=== PATIENT | female | born 1955 | race Caucasian/White ===

== ENCOUNTER 2019-07-29 11:15 | Outpatient (CLI) | payer MEDICAID ==
[2019-07-29 18:57] LABS: BASOPHILS % (AUTO) 0.7 %; EOSINOPHILS # (AUTO) 0.1 10^3/uL (0.0-0.7); EOSINOPHILS % (AUTO) 1.3 %; HGB - HEMOGLOBIN 13.6 g/dL (12.0-16.0); LYMPHOCYTES # (AUTO) 2.2 10^3/uL (1.5-3.5); LYMPHOCYTES % (AUTO) 41.9 %; MEAN CORPUSCULAR HGB CONC 32.1 g/dL (32.0-36.0); MEAN CORPUSCULAR VOLUME 90.4 fL (81.0-99.0); MEAN PLATELET VOLUME 9.9 fL (7.9-10.8); MONOCYTES # (AUTO) 0.5 10^3/uL (0.0-1.0); MONOCYTES % (AUTO) 8.8 %; NEUTROPHILS # (AUTO) 2.5 10^3/uL (1.5-6.6); NEUTROPHILS % (AUTO) 47.1 %; PLT - PLATELET COUNT 352 10^3/uL (130-450); RED BLOOD COUNT 4.69 10^6/uL (4.20-5.40); WHITE BLOOD COUNT 5.3 x10^3/uL (4.8-10.8)
[2019-07-29 19:18] LABS: ALBUMIN 4.5 g/dL (3.2-5.5); ALBUMIN/GLOBULIN RATIO 1.5 (1.0-2.2); ALKALINE PHOSPHATASE 52 IU/L (42-121); ALT ALANINE AMINOTRANSFERASE 31 IU/L (10-60); AST ASPARTATE AMINOTRANSFERASE 27 IU/L (10-42); BILIRUBIN,TOTAL 0.4 mg/dL (0.2-1.0); BUN - BLOOD UREA NITROGEN 11 mg/dL (6-20); CALCIUM 9.4 mg/dL (8.5-10.3); CARBON DIOXIDE - CO2 27 mmol/L (21-32); CHLORIDE 101 mmol/L (101-111); CHOL/HDL RATIO 5.3 (<4.4); CHOLESTEROL 294 mg/dL; CREATININE 0.6 mg/dL (0.4-1.0); GFR - MDRD 101 (>89); GLUCOSE 92 mg/dL (70-100); HDL CHOLESTEROL 56 mg/dL; LDL CHOLESTEROL,CALCULATED 180 mg/dL; LDL/HDL RATIO 3.2 (<4.4); SODIUM 140 mmol/L (135-145); TOTAL PROTEIN 7.5 g/dL (6.7-8.2); VLDL CHOLESTEROL 58 mg/dL
== END 2019-07-29 23:59 | disposition home or self-care (01) ==
LOC: LAB.WCP 11:15
PROVIDERS: ATTEND Physician Assistant
DX: Z00.00 Encounter for general adult medical examination without abnormal findings (principal)
CPT/HCPCS: 36415; 80053; 80061; 83721; 84443; 85025

== ENCOUNTER 2020-02-02 08:14 | Outpatient (CLI) | payer MEDICAID ==
[2020-02-02 12:05] LABS: CHOL/HDL RATIO 4.6 (<4.4); CHOLESTEROL 266 mg/dL; HDL CHOLESTEROL 58 mg/dL; LDL CHOLESTEROL,CALCULATED 152 mg/dL; LDL/HDL RATIO 2.6 (<4.4); VLDL CHOLESTEROL 56 mg/dL
== END 2020-02-02 08:15 | disposition home or self-care (01) ==
LOC: LAB.WCP 08:14
PROVIDERS: ATTEND Physician Assistant
DX: E78.5 Hyperlipidemia, unspecified (principal)
CPT/HCPCS: 36415; 80061; 83721

== ENCOUNTER 2020-11-04 08:00 | Outpatient (CLI) | payer MEDICAID ==
[2020-11-04 12:08] LABS: BASOPHILS # (AUTO) 0.1 10^3/uL (0.0-0.1); BASOPHILS % (AUTO) 0.8 %; EOSINOPHILS # (AUTO) 0.1 10^3/uL (0.0-0.7); EOSINOPHILS % (AUTO) 1.7 %; HCT - HEMATOCRIT 40.7 % (37.0-47.0); HGB - HEMOGLOBIN 13.6 g/dL (12.0-16.0); LYMPHOCYTES # (AUTO) 2.1 10^3/uL (1.5-3.5); LYMPHOCYTES % (AUTO) 35.9 %; MEAN CORPUSCULAR HEMOGLOBIN 30.3 pg (27.0-31.0); MEAN CORPUSCULAR HGB CONC 33.4 g/dL (32.0-36.0); MEAN CORPUSCULAR VOLUME 90.6 fL (81.0-99.0); MEAN PLATELET VOLUME 10.7 fL (7.9-10.8); MONOCYTES # (AUTO) 0.6 10^3/uL (0.0-1.0); MONOCYTES % (AUTO) 9.6 %; NEUTROPHILS # (AUTO) 3.1 10^3/uL (1.5-6.6); NEUTROPHILS % (AUTO) 51.8 %; PLT - PLATELET COUNT 325 10^3/uL (130-450); RED BLOOD COUNT 4.49 10^6/uL (4.20-5.40); WHITE BLOOD COUNT 5.9 x10^3/uL (4.8-10.8)
[2020-11-04 12:23] LABS: ALBUMIN 4.2 g/dL (3.2-5.5); ALBUMIN/GLOBULIN RATIO 1.5 (1.0-2.2); ALKALINE PHOSPHATASE 64 IU/L (42-121); ALT ALANINE AMINOTRANSFERASE 34 IU/L (10-60); AST ASPARTATE AMINOTRANSFERASE 32 IU/L (10-42); BILIRUBIN,TOTAL 0.5 mg/dL (0.2-1.0); BUN - BLOOD UREA NITROGEN 15 mg/dL (6-20); CALCIUM 9.1 mg/dL (8.5-10.3); CARBON DIOXIDE - CO2 26 mmol/L (21-32); CHLORIDE 101 mmol/L (101-111); CHOL/HDL RATIO 4.6 (<4.4); CHOLESTEROL 223 mg/dL; CREATININE 0.6 mg/dL (0.4-1.0); GFR - MDRD 101 (>89); GLUCOSE 99 mg/dL (70-100); HDL CHOLESTEROL 48 mg/dL; LDL CHOLESTEROL,CALCULATED 138 mg/dL; LDL/HDL RATIO 2.9 (<4.4); POTASSIUM 3.9 mmol/L (3.5-5.0); SODIUM 136 mmol/L (135-145); TRIGLYCERIDES 184 mg/dL; VLDL CHOLESTEROL 37 mg/dL
[2020-11-04 12:35] LABS: THYROID STIMULATING HORMONE 4.59 uIU/mL (0.34-5.60)
== END 2020-11-04 23:59 ==
LOC: LAB.WCP 08:00
PROVIDERS: ATTEND Nurse Practitioner Family
DX: Z00.00 Encounter for general adult medical examination without abnormal findings (principal)
CPT/HCPCS: 36415; 80053; 80061; 83721; 84443; 85025

== ENCOUNTER 2021-07-13 10:55 | Outpatient (CLI) | payer MEDICARE, MEDICAID ==
--- NOTE | 2021-07-13 13:18 | XRAY Report ---
PROCEDURE: Lumbar Spine 2 View INDICATIONS: LOW BACK PAIN TECHNIQUE: 3 views of the lumbar spine were acquired. COMPARISON: None. FINDINGS: Bones: 5 [id number] vertebrae are present. Mild grade 1 anterolisthesis of L3 on L4. No vertebr al body compression fractures. No suspicious bony lesions. Multilevel disc space narrowing and endp late osteophyte formation. Facet hypertrophy throughout the mid and lower lumbar spine. Soft tissues: Overlying bowel gas pattern is normal. No suspicious soft tissue calcifications. IMPRESSION: 1. Multilevel degenerative disc and facet disease. 2. No acute fracture. No osseous lesion. If symptoms and/or clinical suspicion for pathology continue , further assessment with repeat plain films, or advanced imaging (e.g., CT, MRI, or bone scan) is re commended for further assessment. Reviewed by: Alondra Munoz MD on 07/13/2021 1:17 PM PST Approved by: Alondra Munoz MD on 07/13/2021 1:17 PM PST Station ID: [id number]
== END 2021-07-13 23:59 | disposition home or self-care (01) ==
LOC: DI.N 10:55
PROVIDERS: ATTEND Family Medicine
DX: M43.16 Spondylolisthesis, lumbar region (principal); M47.816 Spondylosis without myelopathy or radiculopathy, lumbar region; M51.36 Other intervertebral disc degeneration, lumbar region

== ENCOUNTER 2021-07-17 13:17 | Outpatient (CLI) | payer MEDICARE, MEDICAID ==
--- NOTE | 2021-07-17 17:04 | MRI Report ---
PROCEDURE: Lumbar Spine W/O INDICATIONS: LUMBAR SPONDYLOLISTHESIS TECHNIQUE: Noncontrast sagittal T1 spin echo and T2 fast echo, sagittal STIR, axial T1 and T2 fast spin echo thr ough the lumbar spine. In cases with scoliosis, additional coronal T2 fast spin echo may be performe d. COMPARISON: None. FINDINGS: Image quality: Excellent. Alignment and Curvature: There is mild L3-L4 anterolisthesis secondary to facet hypertrophy. Bone Marrow: Mild Modic type II reactive endplate changes noted adjacent to the L2-L3, L3-L4, L4-L5 a nd L5-S1 discs. No acute vertebral body compression fractures. Spinal Cord: Conus medullaris terminates at the L1 level. Visualized cord demonstrates normal signa l and size. Paraspinous Soft Tissues: No paravertebral masses. T12-L1: Normal in appearance. L1-L2: Loss of disc signal and height. Moderate, diffuse disc bulge. Mild bilateral facet hypertro phy. Moderate narrowing of the central canal. Moderate bilateral neural foraminal narrowing. No neura l compression. L2-L3: Loss of disc signal and height. Moderate, diffuse disc bulge. Large central/left central di sc protrusion. Mild bilateral facet hypertrophy. Severe narrowing of the central canal with compressi on of the traversing nerve roots of the cauda equina. Mild right and moderate left neural foraminal n arrowing. L3-L4: Loss of disc signal and height. Moderate, diffuse disc bulge. Severe bilateral facet hypertr ophy. Severe narrowing of the central canal with compression of the nerve roots of the cauda equina. Moderate bilateral neural foraminal narrowing. L4-L5: Loss of disc signal and height. Mild, diffuse disc bulge. Moderate bilateral facet hypertrop hy. Mild narrowing of the central canal. Moderate right and severe left neural foraminal narrowing wi th compression of exiting left L4 nerve root. L5-S1: Loss of disc signal. Mild, diffuse disc bulge. Acoo-qd-texmdvht bilateral facet of artery. N o central stenosis. Mild right and moderate left neural foraminal narrowing. No neural compression. IMPRESSION: 1. Grade 1 L4-L5 degenerative spondylolisthesis. 2. Multilevel degenerative disc disease. 3. Multilevel facet arthropathy. 4. Severe L2-L3 and L3-L4 central canal narrowing with compression of the traversing nerve roots of t he cauda equina. 5. Severe left L4-L5 neural foraminal narrowing with compression of the exiting left L4 nerve root. Reviewed by: Lauryn Becker MD, PhD on 07/17/2021 5:02 PM PST Approved by: Lauryn Becker MD, PhD on 07/17/2021 5:02 PM PST Station ID: [id number]
== END 2021-07-17 13:18 | disposition home or self-care (01) ==
LOC: DI 13:17
PROVIDERS: ATTEND Family Medicine
DX: M43.16 Spondylolisthesis, lumbar region (principal); M51.36 Other intervertebral disc degeneration, lumbar region; M51.16 Intervertebral disc disorders with radiculopathy, lumbar region; M48.061 Spinal stenosis, lumbar region without neurogenic claudication; M47.26 Other spondylosis with radiculopathy, lumbar region

== ENCOUNTER 2022-01-10 11:41 | Outpatient (CLI) | payer MEDICARE, MEDICAID ==
[2022-01-10 18:15] LABS: CHOL/HDL RATIO 4.3 (<4.4); CHOLESTEROL 227 mg/dL; HDL CHOLESTEROL 53 mg/dL; LDL CHOLESTEROL,CALCULATED 131 mg/dL; LDL/HDL RATIO 2.5 (<4.4); TRIGLYCERIDES 216 mg/dL; VLDL CHOLESTEROL 43 mg/dL
== END 2022-01-10 11:42 | disposition home or self-care (01) ==
LOC: LAB.N 11:41
PROVIDERS: ATTEND Physician Assistant
DX: E78.5 Hyperlipidemia, unspecified (principal)
CPT/HCPCS: 36415; 80061; 83721

== ENCOUNTER 2022-02-01 11:22 | Outpatient (CLI) | payer MEDICARE ==
--- NOTE | 2022-02-14 10:30 | Mammography Report ---
BILATERAL DIGITAL SCREENING MAMMOGRAM 3D/2D: 02/01/2022 CLINICAL: Routine screening. No prior exams were available for comparison. There are scattered areas of fibroglandular density in both breasts (category b / 25%-50% glandular t issue). No significant masses, calcifications, or other findings are seen in either breast. IMPRESSION: NEGATIVE There is no mammographic evidence of malignancy. A 1 year screening mammogram is recommended. Based on the Tyrer Cuzick model (a risk assessment model) the patients lifetime risk is 6.3% and her 10 year risk is 3.2%. According to the ACR, ACS, and NCCN guidelines, an annual breast MRI exam tiago g with mammogram is recommended if the patients lifetime risk is 20% or greater. This exam was interpreted at Station ID: [id number]. NOTE: For mammograms, a report in lay terms will be sent to the patient. Approximately 15% of breast malignancies will not be visualized mammographically. In the management of a palpable breast mass, a negative mammogram must not discourage biopsy of a clinically suspicious lesion. Electronically Signed By: Al mancilla/mia:02/13/2022 14:18:00 ACR BI-RADS Category 1: Negative 3341F PARENCHYMAL PATTERN: (A) - The breast(s) demonstrate(s) scattered fibroglandular densities. BI-RADS CATEGORY: (1) - 1 RECOMMENDATION: (ANNUAL) - Recommend routine annual screening mammography. [id number] 1 year screening LATERALITY: (B)
== END 2022-02-01 11:23 | disposition home or self-care (01) ==
LOC: DI.N 11:22
PROVIDERS: ATTEND Physician Assistant
DX: Z12.31 Encounter for screening mammogram for malignant neoplasm of breast (principal)

== ENCOUNTER 2022-07-17 08:56 | Outpatient (CLI) | payer MEDICARE ==
[2022-07-17] MEDS ORDERED: LIDOCAINE-MPF 1% 5 ML VIAL ONE (09:02)
[2022-07-17] MEDS ORDERED: TRIAMCINOLONE 40 MG/ML VIAL ONE (09:02)
[2022-07-17] MEDS ORDERED: BUPIVACAINE 0.5% PF 10 ML VIAL ONE (09:02)
[2022-07-17] MEDS ORDERED: TRIAMCINOLONE 40 MG/ML VIAL IM ONE (10:08)
[2022-07-17] MEDS ORDERED: BUPIVACAINE 0.5% PF 10 ML VIAL IM ONE (10:08)
[2022-07-17] MEDS ORDERED: LIDOCAINE-MPF 1% 5 ML VIAL SUBQ ONE (10:09)
--- NOTE | 2022-07-17 10:52 | XRAY Report ---
PROCEDURE: Inj/Aspiration Major Joint INDICATIONS: RIGHT HIP PAIN CONTRAST: 5 mL FLUORO TIME: 1.6 MIN TECHNIQUE: The indications, alternatives, benefits, risks, and complications of the procedure were explained to the patient. Written informed consent was obtained and placed in the chart. The patient was placed in an appropriate position on the fluoroscopy table, and a site was chosen for percutaneous access un laureen fluoroscopic guidance. Local anesthetic was administered using a 1% lidocaine solution. A hypod ermic or spinal needle was then used to access the symptomatic joint. Intra-articular location of th e needle tip was confirmed by injecting a small amount of contrast, followed by steroid administratio n. The needle was then withdrawn, and a bandage applied to the puncture site. FINDINGS: Joint injected: Right Medications injected: 1 mL of 40 mg/mL Kenalog and 0.5% Ropivacaine mixture. Complications: None. IMPRESSION: 1. Successful fluoroscopically guided administration of steroid and anaesthetic solution into the rig ht joint. 2. There is noted to be complete destruction of the right femoral head which is a significant change compared to prior x-ray on 05/23/2022. These findings were discussed with the [facility] office Reviewed by: Gilmar Cordero on 07/17/2022 10:50 AM PST Approved by: Gilmar Cordero on 07/17/2022 10:50 AM PST Station ID: [id number]
== END 2022-07-17 08:57 | disposition home or self-care (01) ==
LOC: DI 08:56
PROVIDERS: ATTEND Physician Assistant Surgical
DX: M25.551 Pain in right hip (principal); M89.9 Disorder of bone, unspecified
CPT/HCPCS: 20610; 77002; Q9965

== ENCOUNTER 2022-07-24 16:07 | Outpatient (CLI) | payer MEDICARE ==
--- NOTE | 2022-07-25 10:20 | XRAY Report ---
PROCEDURE: Hip 2 View RT INDICATIONS: RIGHT HIP PAIN TECHNIQUE: Frontal view of the pelvis, 2 views of the right hip COMPARISON: Pelvis and right hip radiographs 05/23/2022 FINDINGS: Bones: Severe degenerative changes of the right hip redemonstrated. Since the prior exam, pronounced increase in femoral head deformity/articular surface collapse. Soft tissues: No suspicious soft tissue calcifications or masses. IMPRESSION: Severe right hip degenerative changes with significant interval increase in right femoral head deform ity since the prior exam. Findings could represent pronounced worsening of degenerative changes or ar ticular surface collapse related to avascular necrosis, other etiologies not excluded. Reviewed by: Rishi Cho MD on 07/25/2022 10:19 AM PST Approved by: Rishi Cho MD on 07/25/2022 10:19 AM PST Station ID: [id number]
== END 2022-07-24 16:11 | disposition home or self-care (01) ==
LOC: DI.WOS 16:07
PROVIDERS: ATTEND Physician Assistant Surgical
DX: M70.61 Trochanteric bursitis, right hip (principal); M16.11 Unilateral primary osteoarthritis, right hip

== ENCOUNTER 2022-07-31 13:47 | Outpatient (CLI) | payer MEDICARE ==
--- NOTE | 2022-07-31 16:35 | MRI Report ---
PROCEDURE: HIP WO - RT INDICATIONS: OSTEONECROSIS RIGHT FEMUR TECHNIQUE: Noncontrast coronal T1 spin echo and STIR through the bony pelvis. Coronal and axial T2 fast spin ec ho with fat saturation, sagittal T1 spin echo, and oblique axial T2 fast spin echo with fat saturatio n through the hip. COMPARISON: Right hip radiographs 07/24/2022 FINDINGS: Image quality: Excellent. Bones and joints: There is flattening of the superior femoral head with osseous destruction and frag mentation as seen on radiographs from 07/24/2022. These osseous fragments are seen within the joint sp michelle. Prominent osseous edema is seen in the femoral neck extending to the proximal femoral shaft. The re is mild edema and osseous remodeling within the right acetabulum. A large right hip effusion is pr esent, which demonstrates intermediate signal intensity on fluid sensitive sequences and may contain blood products or debris. Left proximal femur demonstrates normal signal intensity. Moderate left hip osteoarthrosis. No acute pelvic fracture. Degenerative disc disease and facet hypertrophy are seen in the lower lumbar spine. No suspicious marrow replacing mass. Tendons: Mild right distal gluteus medius and minimus tendinosis with asymmetric grade 2-3 fatty inf iltration of the right gluteus musculature. The iliopsoas tendon appears intact, without adjacent bur shaye fluid collections. The origin of the hamstring tendon is intact at the ischial tuberosity. The tendons for the direct and indirect heads of the rectus femoris muscle appear intact. Labrum and cartilage: The acetabular labrum appears intact. Cartilage surface of the femoral head a ppears of normal thickness. There is normal morphology of the femoral head and acetabulum. Soft tissues: Mild soft tissue edema surrounding the right hip. There is mild edema within the right hip adductors that may be related to a low-grade strains. Diverticula are noted in the colon. IMPRESSION: Flattening of the superior right femoral head articular surface with fragmentation resulting in loose osseous structures within the joint. Prominent surrounding osseous edema is seen within the proximal femur and to a lesser extent the right acetabulum. A large right hip effusion is present, which may contain proteinaceous or hemorrhagic contents. Findings may be related to osteonecrosis, subchondral fracture, or neuropathic arthropathy with rapid progression of degenerative changes, although septic arthritis is not excluded. Recommend clinical correlation, and urgent joint aspiration if there is cl inical suspicion for septic arthritis. Reviewed by: Rishi Celis MD on 07/31/2022 4:34 PM PST Approved by: Rishi Celis MD on 07/31/2022 4:34 PM PST Station ID: [id number]
== END 2022-07-31 13:48 | disposition home or self-care (01) ==
LOC: DI 13:47
PROVIDERS: ATTEND Physician Assistant Surgical
DX: M87.851 Other osteonecrosis, right femur (principal); M25.451 Effusion, right hip; R93.6 Abnormal findings on diagnostic imaging of limbs
CPT/HCPCS: 36415; 85025; 85651; 86140

== ENCOUNTER 2022-07-31 14:47 | Outpatient (CLI) | payer MEDICARE ==
[2022-07-31 14:58] LABS: BASOPHILS # (AUTO) 0.1 10^3/uL (0.0-0.1); BASOPHILS % (AUTO) 0.9 %; EOSINOPHILS # (AUTO) 0.1 10^3/uL (0.0-0.7); EOSINOPHILS % (AUTO) 1.1 %; HCT - HEMATOCRIT 43.7 % (37.0-47.0); HGB - HEMOGLOBIN 14.7 g/dL (12.0-16.0); LYMPHOCYTES % (AUTO) 36.4 %; MEAN CORPUSCULAR HEMOGLOBIN 30.2 pg (27.0-31.0); MEAN CORPUSCULAR HGB CONC 33.6 g/dL (32.0-36.0); MEAN CORPUSCULAR VOLUME 89.9 fL (81.0-99.0); MEAN PLATELET VOLUME 9.2 fL (7.9-10.8); MONOCYTES # (AUTO) 0.6 10^3/uL (0.0-1.0); MONOCYTES % (AUTO) 7.8 %; NEUTROPHILS # (AUTO) 4.4 10^3/uL (1.5-6.6); NEUTROPHILS % (AUTO) 53.6 %; PLT - PLATELET COUNT 393 10^3/uL (130-450); RED BLOOD COUNT 4.86 10^6/uL (4.20-5.40); RED CELL DISTRIBUTION WIDTH 12.9 % (12.0-15.0); WHITE BLOOD COUNT 8.2 x10^3/uL (4.8-10.8)
== END 2022-07-31 14:48 | disposition home or self-care (01) ==
LOC: LAB 14:47
PROVIDERS: ATTEND Physician Assistant Surgical
DX: M87.851 Other osteonecrosis, right femur (principal)
CPT/HCPCS: 36415; 85025; 85651; 86140

== ENCOUNTER 2022-08-21 15:12 | Outpatient (CLI) | payer MEDICARE ==
--- NOTE | 2022-08-21 16:20 | Ultrasound Report ---
PROCEDURE: Duplex Ext Veins Right INDICATIONS: OSTEONECROSIS RIGHT FEMUR TECHNIQUE: Real-time imaging, as well as color and pulse Doppler interrogation, were performed of the lower extr emity deep veins from the inguinal ligament to the popliteal fossa. COMPARISON: None. FINDINGS: The deep veins are normally compressible, and free of intraluminal thrombus. Color and pu lse Doppler demonstrate normal phasic intraluminal flow. There is normal augmentation response to di stal compression maneuver. IMPRESSION: No DVT in the right lower extremity. Reviewed by: Gilmar Cordero on 08/21/2022 4:18 PM PDT Approved by: Gilmar Cordero on 08/21/2022 4:18 PM PDT Station ID: [id number]
== END 2022-08-21 15:13 | disposition home or self-care (01) ==
LOC: DI 15:12
PROVIDERS: ATTEND Physician Assistant Surgical
DX: M87.851 Other osteonecrosis, right femur (principal)

== ENCOUNTER 2022-09-04 07:59 | Outpatient (CLI) | payer MEDICARE ==
[~2022-09-04 07:59] MED LIST: ATROPINE ABBOJECT 1 MG/10 ML SYRINGE IVP ONE; DOBUTamine 500 MG/250 ML 500 MG/250 ML BAG IV ONE; METOPROLOL 5 MG/5 ML VIAL IVP ONE; NITROGLYCERIN SL 0.4 MG TABLET SL ONE
--- NOTE | 2022-09-04 08:07 | CARDIAC PROCEDURE NOTE ---
Stress Test Report Service Date: 09/04/22 Service Time: 08:00 Ordering Provider: Zoila Dunham PA-C Indication for Test: Pre-operative risk stratification prior to elective total hip replacement surgery. Significant Medical History: Ely's medical history has been most notable for orthopedic issues requiring back surgery on 2 occasions, most recently 9 months ago, which she reports was uncomplicated. 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 During that time she became increasingly fatigued and reports having intermittent chest tightness, related to emotional rather than physical stress. Her mother in late 2018 and she relocated to [facility]. Initially she was able to make some progress with her cardiovascular symptoms and had increased her walking up to almost 3 miles daily, but her back symptoms worsened and she underwent the described back surgery procedure last summer. Following surgery she remained globally weak and unable to regain her prior level of exertional tolerance. Her right hip pain has been increasingly progressive and has limited her to almost no activity in recent times. Notably, she has not experienced recurrent chest tightness over the past 3 years. Her risk profile is rather benign, with a long history of avoiding red meat and only borderline elevation of cholesterol levels (as indicated below). Cardiac Risk Factors: She reports recent LDL cholesterol level of 131 mg/dL (not treated); mother had history of CHF (etiology unknown); no history of hypertension, diabetes, cigarette smoking ever or prior vascular disease. Type of Stress Test: Dobutamine Stress Echocardiography Pharmacologic Agent: Dobutamine Procedure: -Pharmacologic Stress Test- After signing informed consent, the patient underwent a pharmacologic stress test using graded infusion of dobutamine, commencing at 5 mcg/kg/min, increasing every 3 minutes to 10, 20, 30, 40 and 50 mcg/kg/min. The test was terminated due to achieving target heart rate. Resting heart rate: 83 Peak heart rate: 138 Normal HR response. Resting BP: 146/80 Peak BP: 124/72 Borderline elevated resting BP with physiologic response to dobutamine. Rhythm during testing: Sinus rhythm throughout. Symptoms: Patient reported mild tingling, heart pounding and chest tightness at peak dobutamine infusion. EKG at rest showed Normal sinus rhythm, normal in all aspects. EKG at peak stress showed no ischemia by EKG criteria. In Recovery HR gradually decreased towards resting baseline with BP increasing to final value of 136/76. Echo imaging was performed at rest and with stress, per protocol. Image interpretation will be reported separately. Amando Adams MD, was present throughout this pharmacologic stress study and supervised it in its entirety. Summary: 1) Normal resting EKG. 2) Adequate stress was achieved. 3) Normal BP response to pharmacologic agent. 4) No ischemic changes by EKG criteria were seen at peak stress. 5) Echo image interpretation reveals normal resting left ventricular size, wall thickness and systolic function, with appropriate hyperdynamic augmentation of all segments at peak pharmacologic stress, and return to baseline contractile pattern in late recovery; findings indicate no evidence of prior infarct or inducible ischemia. See separate echo image interpretation report CONCLUSIONS: 1) No evidence by EKG or echo imaging of inducible ischemia with an adequate level of dobutamine induced pharmacologic stress. 2) Patient should be at cardiovascular risk that is average for age at upcoming planned hip replacement surgery.
[2022-09-04] MEDS ORDERED: SODIUM CHLORIDE 0.9% 250 ML IV ONE (08:52)
[2022-09-04] MEDS ORDERED: DOBUTamine 500 MG/250 ML 500 MG/250 ML BAG IV SCH (13:00)
== END 2022-09-04 08:00 | disposition home or self-care (01) ==
LOC: DI 07:59
PROVIDERS: ATTEND Physician Assistant
DX: Z01.810 Encounter for preprocedural cardiovascular examination (principal); R06.09 Other forms of dyspnea
CPT/HCPCS: 93016; 93017; 93018; 93350; J1250

== ENCOUNTER 2022-10-02 08:44 | Outpatient (CLI) | payer MEDICARE ==
--- NOTE | 2022-10-02 14:00 | Ultrasound Report ---
PROCEDURE: Duplex Lwr Ext Arterial Bilat INDICATIONS: PAD TECHNIQUE: Color and pulse Doppler interrogation was performed of both lower extremity arterial systems, with im age documentation. COMPARISON: None FINDINGS: Right lower extremity: Common femoral artery: 92.5 cm/sec, with triphasic flow. Deep femoral artery: 89.1 cm/sec, with triphasic flow. Proximal superficial femoral artery: 96.0 cm/sec, with triphasic flow. Mid superficial femoral artery: 65.1 cm/sec, with biphasic flow. Distal superficial femoral artery: 60.6 cm/sec, with biphasic flow. Popliteal artery: 47.3 cm/sec, with biphasic flow. Posterior tibial artery: 51.0 cm/sec, with biphasic flow. Anterior tibial artery/dorsalis pedis: 51.0 cm/sec, with biphasic flow. Alcaraz-scale imaging description: No focal hemodynamically significant stenosis. Left lower extremity: Common femoral artery: 122.2 cm/sec, with triphasic flow. Deep femoral artery: 132.5 cm/sec, with triphasic flow. Proximal superficial femoral artery: 103.4 cm/sec, with right phasic flow. Mid superficial femoral artery: 103.4 cm/sec, with triphasic flow. Distal superficial femoral artery: 98.8 cm/sec, with phasic flow. Popliteal artery: Not imaged. Posterior tibial artery: 68.1 cm/sec, with biphasic flow. Anterior tibial artery/dorsalis pedis: 68.8 cm/sec, with biphasic flow. Alcaraz-scale imaging description: No focal hemodynamically significant stenosis. IMPRESSION: 1. No focal hemodynamically significant stenosis of the bilateral lower extremity arteries. Of note, the left popliteal artery was not interrogated due to patient discomfort. Reviewed by: Diamond Lou MD on 10/02/2022 1:58 PM PDT Approved by: Diamond Lou MD on 10/02/2022 1:58 PM PDT Station ID: [id number]
== END 2022-10-02 08:45 | disposition home or self-care (01) ==
LOC: DI 08:44
PROVIDERS: ATTEND Orthopaedic Surgery
DX: I73.9 Peripheral vascular disease, unspecified (principal)
CPT/HCPCS: 93925

== ENCOUNTER 2022-10-24 07:14 | Inpatient (IN) | payer MEDICARE ==
[~2022-10-24 07:14] MED LIST changes: +ACETAMINOPHEN 500 MG TABLET PO ONE; -ATROPINE ABBOJECT 1 MG/10 ML SYRINGE IVP ONE; +CELECOXIB 100 MG CAPSULE PO ONE; +DEXAMETHASONE 10 MG/ML VIAL ONE; -DOBUTamine 500 MG/250 ML 500 MG/250 ML BAG IV ONE; -METOPROLOL 5 MG/5 ML VIAL IVP ONE; -NITROGLYCERIN SL 0.4 MG TABLET SL ONE; +ceFAZolin 2 GM VIAL ONE
[2022-10-24] MEDS ORDERED: LACTATED RINGERS 1,000 ML IV ONE ×2 (07:17→12:16)
[2022-10-24] MEDS ORDERED: BUPIVACAINE 0.5% PF 10 ML VIAL ONE (07:37)
[2022-10-24] MEDS ORDERED: ONDANSETRON 4 MG/2 ML VIAL ONE (07:41)
[2022-10-24] MEDS ORDERED: MIDAZOLAM 2 MG/2 ML VIAL ONE (07:42)
[2022-10-24] MEDS ORDERED: KETAMINE 200 MG/20 ML VIAL ONE (07:42)
[2022-10-24] MEDS ORDERED: PROPOFOL 500 MG/50 ML 500 MG/50 ML VIAL ONE (07:43)
--- NOTE | 2022-10-24 08:14 | ANESTHESIA ---
Pre-Anesthesia VS, & Labs - Diagnosis R hip osteoarthritis - Procedure R hip arthroplasty Vital Signs: Temp Pulse Resp BP Pulse Ox O2 Flow Rate 36.0 C L 76 16 152/95 H 98 0 10/24/22 07:32 10/24/22 07:32 10/24/22 07:32 10/24/22 07:32 10/24/22 07:32 10/24/22 07:32 Height: 5 ft 4 in Weight (kg): 87.5 kg Body Mass Index: 33.0 BMI Classification: Obese - NPO >8 hours - Is Patient ?: No - Lab Results Current Lab Results: Laboratory Tests 10/24/22 08:09: POC Whole Bld Glucose 94 Home Medications and Allergies Home Medications: Ambulatory Orders Acetaminophen [Tylenol] 650 mg PO Q6H PRN 10/16/22 Cannabidiol (Cbd) [Epidiolex] 50 mg PO BID 10/16/22 DULoxetine [Cymbalta] 60 mg PO DAILY 10/16/22 Melatonin/Pyridoxine [Melatonin 5 mg Tablet] 1 each PO QPM PRN 10/16/22 Meloxicam [Mobic] 15 mg PO DAILY 10/16/22 Zolpidem [Ambien] 5 mg PO HS PRN 10/16/22 metroNIDAZOLE 0.75% GEL [Flagyl Gel] 1 applic TOP BID 10/16/22 tiZANidine [Zanaflex] 4 mg PO Q8H PRN 10/16/22 traMADol [Ultram] 50 mg PO QPM PRN 10/16/22 Acetaminophen [Tylenol] 650 mg PO Q6H PRN 10/16/22 Cannabidiol (Cbd) [Epidiolex] 50 mg PO BID 10/16/22 DULoxetine [Cymbalta] 60 mg PO DAILY 10/16/22 Melatonin/Pyridoxine [Melatonin 5 mg Tablet] 1 each PO QPM PRN 10/16/22 Meloxicam [Mobic] 15 mg PO DAILY 10/16/22 Zolpidem [Ambien] 5 mg PO HS PRN 10/16/22 metroNIDAZOLE 0.75% GEL [Flagyl Gel] 1 applic TOP BID 10/16/22 tiZANidine [Zanaflex] 4 mg PO Q8H PRN 10/16/22 traMADol [Ultram] 50 mg PO QPM PRN 10/16/22 Allergies/Adverse Reactions: Allergies Allergy/AdvReac Type Severity Reaction Status Date / Time No Known Drug Allergies Allergy Verified 09/04/22 12:10 Anes History & Medical History - Anesthetic History Anesthesia Complications: reports: No previous complications Family history of Anesthesia Complications: Denies Family history of Malignant Hyperthermia: Denies (chronic pain) - Medical History Cardiovascular: reports: Murmur Pulmonary: reports: None Gastrointestinal: reports: None Urinary: reports: None Musculoskeletal: reports: Osteoarthritis Endocrine/Autoimmune: reports: None Skin: reports: Rosacea - Surgical History Eyes Ears Nose Throat (EENT): reports: Tonsil/Adenoidectomy Gynecologic: reports: section, Hysterectomy, Other Orthopedic: reports: Carpal Tunnel surgery, Spine surgery, Other Exam General: Alert, Oriented x3 Dental: WNL Mouth Openin Fingerbreadth Neck Mobility: Normal Mallampati classification: II Thyromental Distance: 4-6 cm Respiratory: Lungs clear Cardiovascular: Regular rate Plan Anesthesia Type: General (SAB primary with GETA as backup), Spinal, Fascia Iliaca Block Regional Block: Per Surgeon's request for Post Op pain control Consent for Procedure(s) Verified and Reviewed: Yes Code Status: Attempt Resuscitation ASA classification: 3-Severe systemic disease Is this case an emergency?: No
[2022-10-24] MEDS ORDERED: ePHEDrine 50 MG/ML VIAL IVP PRN (08:15)
[2022-10-24] MEDS ORDERED: ATROPINE ABBOJECT 1 MG/10 ML SYRINGE IVP PRN (08:15)
[2022-10-24] MEDS ORDERED: NALOXONE 0.4 MG/ML VIAL IVP PRN (08:15)
[2022-10-24] MEDS ORDERED: MORPHINE 2 MG/ML CARPUJECT IVP PRN (08:15)
[2022-10-24] MEDS ORDERED: fentaNYL 100 MCG/2 ML VIAL IVP PRN (08:15)
[2022-10-24] MEDS ORDERED: ONDANSETRON 4 MG/2 ML VIAL IVP PRN ×2 (08:15→12:09)
[2022-10-24] MEDS ORDERED: fentaNYL 100 MCG/2 ML VIAL ONE ×2 (08:31→11:10)
[2022-10-24] MEDS ORDERED: TRANEXAMIC ACID 1,000 MG/10 ML VIAL ONE (08:59)
[2022-10-24] MEDS ORDERED: LACTATED RINGERS 1,000 ML IV SCH (09:00)
[2022-10-24] MEDS ORDERED: PROPOFOL 200 MG/20 ML VIAL IVP ONE (09:07)
[2022-10-24] MEDS ORDERED: ROCURONIUM 50 MG/5 ML VIAL ONE ×2 (09:07→10:18)
[2022-10-24] MEDS ORDERED: DEXAMETHASONE 4 MG/ML VIAL ONE (09:08)
[2022-10-24] MEDS ORDERED: VANCOMYCIN 1 GM VIAL ONE (09:15)
[2022-10-24] MEDS ORDERED: BUPIVACAINE 0.25% PF 30 ML VIAL ONE (09:16)
[2022-10-24] MEDS ORDERED: BUPIVACAINE 0.25% PF 30 ML VIAL SUBQ ONE (09:26)
[2022-10-24] MEDS ORDERED: ePHEDrine 50 MG/ML VIAL IVP ONE (10:15)
[2022-10-24] MEDS ORDERED: VANCOMYCIN 1 GM VIAL MC ONE (10:45)
[2022-10-24] MEDS ORDERED: ROPIVACAINE 0.2% PF 10 ML VIAL ONE (10:53)
[2022-10-24] MEDS ORDERED: SUGAMMADEX 200 MG/2 ML VIAL IVP ONE (11:44)
--- NOTE | 2022-10-24 11:49 | OPERATIVE REPORT ---
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 Procedure Performed: Right total hip arthroplasty: Payan [employer] Nephew: 54 mm R3 acetabular cup with single 6.5 mm acetabular screw, 54 mm neutral polyethylene liner, #7 high offset anthology femoral component with 36 mm +4 Oxinium femoral head Post Op Diagnosis: Same as preoperative diagnosis - Procedure Note Primary Surgeon: Angelo Lugo MD Secondary Surgeon: Sunitha Arriola PAC Anesthesia Provider: Jewell Waters CRNA Anesthesia Technique: General mask, Local Estimated Blood Loss (mL): 200 Indications: This is a 67-year-old woman with chronic right hip pain that is progressively worsened since March of last year when she took a fall. She has marked pain to the hip groin and upper thigh. She has pain every step. She needs a walking aid 100% of the time. She had a cortisone injection a little over 3 months ago which helped minimally. Her sed rate and C-reactive protein were within normal limits preoperatively. She had painful and limited motion right hip with the right leg shorter than the left. She has had 3 lumbar spine surgeries in the past. Her routine radiographs and MRI scan have been obtained preoperatively. She has almost complete destruction of femoral head with most of the femoral head absent, acetabular deficiency superiorly and laterally. The hip joint is markedly abnormal mostly femoral head and to lesser degree acetabulum with femoral shortening because of the loss of most of the femoral head. 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 This is also confirmed MRI scan of the right hip. She has seen her primary care physician, has attended joint camp and has signed informed consent in our office to proceed with right total hip arthroplastyShe has been a minimal ambulator because of the severe pain about her right hip, almost exclusively indoors at home Findings: There is nearly complete absence of femoral head. The acetabulum had very little articular cartilage. The remaining portion of the femur was articulating superiorly leaving avoid inferiorly and this was filled by fibrous tissue. There is no sign of active infection, either acute or chronic. Complications: None - Other Other Information/Narrative: After satisfactory GeneralAnesthesia had been achieved, the patient was placed in a lateral decubitus position with the right hip facing superiorly. The patient was secured in the lateral decubitus position using a pegboard with 2 post securing the torso and 2 posts securing the pelvis. The right hip and right lower extremity were prepped and draped in a sterile manner in the usual fashion. A timeout procedure was performed by the entire operating room team and all were in agreement. A longitudinal incision was made about the lateral right hip beginning at the vastus lateralis ridge of the proximal femur and extending it proximally approximately 3 fingerbreadths above the trochanter. The subcutaneous tissue and fascia morgan were split in line with the incision. The anterior one third of the gluteus medius was incised at the myotendinous junction. The gluteus medius was retracted medially. The hip capsule was exposed and was split in a T-shaped fashion. Part of the anterior hip capsule was excised. The femoral head was dislocated with flexion, adduction and external rotation. An osteotomy was done to the femoral neck using a osteotomy guide. Retractors were placed behind the femoral neck to protect the soft tissues from the oscillating saw. The proximal femur was retracted. 2 acetabular retractors were placed one anteriorly directly against bone to reduce any soft tissue impingement to femoral nerve. The second retractor was placed more posteriorly directly against bone and preventing any impingement against sciatic nerve. The acetabulum was prepared with a large curette. Medialization of the acetabulum was performed with a small acetabular reamer and then widening was done up to a 53 mm reamer the final reamers were placed in approximately 20 degrees anteversion and 45 degrees of abduction. A trial acetabular component was inserted, 53 mm and this fit well. A permanent 54 mm R3 acetabular 3-hole component was then impacted in 40 degrees of abduction and approximately 20 degrees of anteversion. This had good fixation to push pull and rotation. A single 6.5 mm, 30 mm superior acetabular screw was inserted. The stability of the acetabular cup was very good. A trial acetabular liner was inserted into the cup. The femoral canal was opened with a box osteotome, starting reamer and then a short broach. Broaching was carried out to a #7. Calcar reaming was performed. Good fit and stability to the #7 stem was achieved. Trial reduction was performed. Hip motion was very good and the hip was stable to dislocation maneuvers. The trial components were removed. A permanent Neutral acetabular liner was impacted into the acetabular cup. The #7 high offset anthology femoral stem was impacted and fully seated. The 36 mm Oxinium +4 femoral head was impacted on the femoral trunnion. There was good stability to push pull and rotation. The hip was reduced, had good leg length tension and good stability with dislocation maneuvers. 3-minute lavage with dilute Betadine was performed.Vancomycin powder, 2 g was inserted before the deep closure about the hip joint. The hip abductors were repaired at the myotendinous junction with #2 Arthrex FiberWire and #1 strata fix. The gluteus medius was repaired using both bone suture and soft tissue suture.. The fascia morgan was closed with #1 Strata fix. The subcutaneous tissue was closed with 2-0 Strata fix. The skin was closed with a 3-0 Monocryl subcuticular closure and Dermabond. The patient tolerated the procedure well. A physician academic assistant was utilized during the procedure to provide retraction and protection of neurovascular structures as well as to facilitate dislocation and reduction of the hip joint.A Jordana articul ar infiltration of soft tissues was performed with 0.25% Marcaine, 60 cc during the closure
--- NOTE | 2022-10-24 11:56 | OPERATIVE REPORT ---
Operative Report - General Procedure Date: 10/24/22
[2022-10-24] MEDS ORDERED: DOCUSATE SODIUM 100 MG CAPSULE PO PRN (12:09)
[2022-10-24] MEDS: HYDROmorphone 0.5 MG/0.5 ML SYRINGE IVP PRN ×4 (12:27→13:25)
[2022-10-24] MEDS ORDERED: HYDROmorphone 1 MG/ML CARPUJECT ONE (12:30)
--- NOTE | 2022-10-24 12:52 | XRAY Report ---
PROCEDURE: Pelvis 1 View INDICATIONS: post operative imaging TECHNIQUE: 1 view(s) of the pelvis acquired. COMPARISON: 07/24/2022. FINDINGS: Bones: Patient is status post right total hip arthroplasty. Right hip alignment is anatomic. No acut e fracture or dislocation. No suspicious bony lesions. Soft tissues: Postsurgical changes are seen in lateral right hip soft tissue. IMPRESSION: Postoperative changes from right total hip arthroplasty with anatomic right hip alignment. Reviewed by: Marino Peguero MD on 10/24/2022 11:51 AM NICOLE Approved by: Marino Peguero MD on 10/24/2022 11:51 AM NICOLE Station ID: [id number]
[2022-10-24] MEDS ORDERED: NS W/20 MEQ KCL 1,000 ML IV SCH (13:00)
[2022-10-24] MEDS ORDERED: HYDROmorphone 0.5 MG/0.5 ML SYRINGE ONE (13:04)
[2022-10-24] MEDS: ACETAMINOPHEN 500 MG TABLET PO SCH ×2 (15:59→18:56)
[2022-10-24] MEDS: SODIUM CHLORIDE FLUSH 0.9% 10 ML SYRINGE IVP SCH (16:41)
[2022-10-24] MEDS: ceFAZolin 2 GM in SODIUM CHLORIDE 0.9% MINIBAG 100 ML IV SCH (16:41)
[2022-10-24] MEDS: oxyCODONE 5 MG TABLET PO PRN (17:23)
[2022-10-24] MEDS ORDERED: traMADol 50 MG TABLET PO SCH (18:00)
[2022-10-24] MEDS: fentaNYL 100 MCG/2 ML VIAL IVP PRN (20:02)
[2022-10-24] MEDS: SODIUM CHLORIDE FLUSH 0.9% 10 ML SYRINGE IVP PRN (20:03)
[2022-10-24] MEDS: ASPIRIN EC 81 MG TABLET PO SCH (21:03)
[2022-10-24] MEDS: CELECOXIB 100 MG CAPSULE PO SCH (21:03)
[2022-10-24] MEDS: ethyl alcohoL 62% SWAB AMPULE NAS SCH (21:03)
[2022-10-25] MEDS: ACETAMINOPHEN 500 MG TABLET PO SCH ×4 (00:42→20:36)
[2022-10-25] MEDS: oxyCODONE 5 MG TABLET PO PRN ×4 (00:43→20:35)
[2022-10-25] MEDS: ceFAZolin 2 GM in SODIUM CHLORIDE 0.9% MINIBAG 100 ML IV SCH (00:44)
[2022-10-25] MEDS: SODIUM CHLORIDE FLUSH 0.9% 10 ML SYRINGE IVP SCH ×3 (00:44→16:54)
--- NOTE | 2022-10-25 01:12 | ANESTHESIA POST OP EVALUATION ---
Anesthesia Post Eval - Post Anesthesia Eval Vitals: Last Vital Signs Temp 37.3 C 10/25/22 00:03 Pulse 91 10/25/22 00:03 Resp 16 10/25/22 00:03 BP 145/70 H 10/25/22 00:03 Pulse Ox 98 10/25/22 00:03 O2 Flow Rate 0 10/24/22 07:32 CV Function Including HR & BP: Stable Pain Control: Satisfactory Nausea & Vomiting: Negative Mental Status: Baseline Respiratory Status: Airway Patent Hydration Status: Satisfactory Anesthesia Complications: None
[2022-10-25 04:58] LABS: BASOPHILS % (AUTO) 0.2 %; HCT - HEMATOCRIT 30.4 % (37.0-47.0); HGB - HEMOGLOBIN 9.8 g/dL (12.0-16.0); LYMPHOCYTES # (AUTO) 1.2 10^3/uL (1.5-3.5); LYMPHOCYTES % (AUTO) 9.6 %; MEAN CORPUSCULAR HEMOGLOBIN 30.5 pg (27.0-31.0); MEAN CORPUSCULAR HGB CONC 32.2 g/dL (32.0-36.0); MEAN CORPUSCULAR VOLUME 94.7 fL (81.0-99.0); MEAN PLATELET VOLUME 9.5 fL (7.9-10.8); MONOCYTES # (AUTO) 1.7 10^3/uL (0.0-1.0); MONOCYTES % (AUTO) 13.3 %; NEUTROPHILS # (AUTO) 9.6 10^3/uL (1.5-6.6); NEUTROPHILS % (AUTO) 76.6 %; PLT - PLATELET COUNT 336 10^3/uL (130-450); RED BLOOD COUNT 3.21 10^6/uL (4.20-5.40); RED CELL DISTRIBUTION WIDTH 13.2 % (12.0-15.0); WHITE BLOOD COUNT 12.5 x10^3/uL (4.8-10.8)
[2022-10-25 04:59] LABS: PLATELET ESTIMATE, MANUAL NORMAL (130-450,000) (NORMAL); PLATELET MORPHOLOGY NORMAL APPEARANCE (NORMAL); RBC MORPHOLOGY (MULTIPLE) NORMAL APPEARANCE (NORMAL); SLIDE REVIEW? Indicated; WBC MORPHOLOGY (MULTIPLE) NORMAL APPEARANCE (NORMAL)
[2022-10-25] MEDS: traMADol 50 MG TABLET PO PRN ×3 (06:09→23:36)
[2022-10-25] MEDS ORDERED: DEXAMETHASONE 10 MG/ML VIAL IVP ONE ×2 (08:00→09:00)
[2022-10-25] MEDS: CELECOXIB 100 MG CAPSULE PO SCH ×2 (08:25→20:36)
[2022-10-25] MEDS: ASPIRIN EC 81 MG TABLET PO SCH ×2 (08:26→20:36)
[2022-10-25] MEDS: ethyl alcohoL 62% SWAB AMPULE NAS SCH ×2 (08:26→20:36)
--- NOTE | 2022-10-25 13:27 | PROVIDER PROGRESS NOTE ---
Subjective - General Procedure Date: 10/24/22 Post Op Days: 1 Procedure Performed: Right total hip arthroplasty - Other Other Information/Narrative: Patient lying semirecumbent in bed She reports increased pain from yesterday in both her right hip and back. She reports significant weakness after working with physical therapy and difficulty moving from the bed to commode. She was not up to chair post operative day one. She had nausea on postoperative day 0 which is now subsided. She reports eating sausage for breakfast with low appetite. She now reports passing urine spontaneously but has a pure wick in place. There was an element of retention yesterday on post operative day 0. No nausea, vomiting, chest pain or dyspnea today She states she worked with physical therapy briefly yesterday and was up from bed to commode with assist. She is awaiting physical therapy evaluation today. Objective - Patient Data Reviewed Vital Signs: Yes Vital Signs: Vital Signs x48h Pulse Resp BP Pulse Ox 10/25/22 08:00 84 18 127/49 L 100 Weight: Weight 10/23/22 10/24/22 10/25/22 23:59 23:59 23:59 Weight (kg) 87.5 kg Intake & Output: Intake and Output Totals x24h 10/23/22 10/24/22 10/25/22 23:59 23:59 23:59 Intake Total 881 600 Output Total 950 800 Balance -69 -200 - Lab Results Lab Results: 10/25/22 04:28 Other Lab Results: Lab Results x24hrs 10/25/22 Range/Units 04:28 WBC 12.5 H (4.8-10.8) x10^3/uL RBC 3.21 L (4.20-5.40) 10^6/uL Hgb 9.8 L (12.0-16.0) g/dL Hct 30.4 L (37.0-47.0) % MCV 94.7 (81.0-99.0) fL MCH 30.5 (27.0-31.0) pg MCHC 32.2 (32.0-36.0) g/dL RDW 13.2 (12.0-15.0) % Plt Count 336 (130-450) 10^3/uL MPV 9.5 (7.9-10.8) fL Neut # (Auto) 9.6 H (1.5-6.6) 10^3/uL Lymph # (Auto) 1.2 L (1.5-3.5) 10^3/uL [place] # (Auto) 1.7 H (0.0-1.0) 10^3/uL Eos # (Auto) 0.0 (0.0-0.7) 10^3/uL Baso # (Auto) 0.0 (0.0-0.1) 10^3/uL Absolute Nucleated RBC 0.00 x10^3/uL Nucleated RBC % 0.0 /100WBC Manual Slide Review Indicated WBC Morphology NORMAL APPEARANCE (NORMAL) Platelet Estimate NORMAL (130-450,000) (NORMAL) Platelet Morphology NORMAL APPEARANCE (NORMAL) RBC Morph Micro Appear NORMAL APPEARANCE (NORMAL) - Imaging Results Radiology Imaging: positive: Final report received - Current Medications Current Medications: Current Medications Generic Name Dose Route Start Last Admin Trade Name Freq PRN Reason Stop Dose Admin Acetaminophen 1,000 mg 10/24/22 13:40 10/25/22 08:32 Acetaminophen 500 Mg Tablet PO 1,000 mg Q6H GABE Administration Alcohol 1 amp 10/24/22 21:00 10/25/22 08:26 Ethyl Alcohol 62% Swab Ampule CARLOS 1 amp BID GABE Administration Aspirin 81 mg 10/24/22 21:00 10/25/22 08:26 Aspirin Ec 81 Mg Tablet PO 81 mg BID GABE Administration Celecoxib 200 mg 10/24/22 21:00 10/25/22 08:25 Celecoxib 100 Mg Capsule PO 200 mg BID GABE Administration Fentanyl 25 mcg 10/24/22 15:16 10/24/22 20:02 Fentanyl 100 Mcg/2 Ml Vial IVP 25 mcg Q2HR PRN Administration Severe Breakthrough pain(8-10) Oxycodone HCl 5 mg 10/24/22 12:09 10/25/22 08:25 Oxycodone 5 Mg Tablet PO 5 mg Q6HR PRN Administration Severe Breakthrough pain(8-10) Sodium Chloride 10 ml 10/24/22 17:00 10/25/22 08:33 Sodium Chloride Flush 0.9% 10 Ml Syringe IVP 10 ml 0100,0900,1700 GABE Administration Sodium Chloride 10 ml 10/24/22 12:09 10/24/22 20:03 Sodium Chloride Flush 0.9% 10 Ml Syringe IVP 10 ml PRN PRN Administration NEEDED PER PROVIDER ORDERS Tramadol HCl 50 mg 10/24/22 18:53 10/25/22 06:09 Tramadol 50 Mg Tablet PO 50 mg Q6HR PRN Administration Hip Pain - Physical Exam Comments/Other: Well-developed, well-nourished, 67-year-old female, no acute distress Dressing is dry and intact in place, no drainage on Mepilex dressing, small hematoma anterior to the Mepilex dressing Neurovascular intact to right lower extremity, femoral and sciatic nerve function intact. She reports some pain with movement of right hip ABX Reporting Has patient been on IV antibiotics over the past 48 hours?: Yes Impression/Plan - Problem List Problem List: 67-year-old female with a past medical history of depression is postoperative day 1 from a right total hip arthroplasty secondary to avascular necrosis by Dr. Lugo at [facility] on 10/24/2022. She is recovering well with moderate pain control but significant weakness limiting her ability to ambulate safely per physical therapy assessment. She is tolerating all oral diet without urinary retention. Orthopedic surgeon verbally aware of admission to [facility] on 10/25/2022. Plan: --Weightbearing as tolerated with front wheeled walker -Follow-up with orthopedic clinic in 5 days after discharge -Mepilex dressing to remain in place until follow-up, can shower or sponge bath with dressing -Pain management with Tylenol, Celebrex and oxycodone as needed. Fentanyl IV and tramadol orally as second line analgesics -Oral diet, fluids discontinued as tolerating oral diet without nausea or vomiting -Bowel regimen given narcotic use -Physical therapy and Occupational Therapy following. PT recommended discharge to SNF on post operative day 0 -Social work consulted for discharge planning to SNF - Patient admitted due to symptomatic anemia (hemoglobin 9.8 today with baseline of 14 pre-operatively). She is also experiencing weakness. -DVT prophylaxis with 81 mg of aspirin twice daily for 6 weeks and SCDs while in hospital - CBC daily with B12, folate and iron panel
--- NOTE | 2022-10-25 18:11 | PHARMACY PROGRESS NOTE ---
- Best Possible Medication History Admit Date and Time: 10/25/22 1639 Processed by: Pharmacy Medication History completed: Yes Patient Interview: Pt unable to participate Secondary Source(s): Insurance records As the person ultimately responsible for medication therapy, providers are able to order a medication from an existing home medication list in [facility] via the "Reconcile Routine" prior to Confirmation of that medication by user support analyst supervisor. Such practice is discouraged except when the physician, in their clinical judgment, deems that a medical need exists for a medication without regard to previous use.
[2022-10-26] MEDS: SODIUM CHLORIDE FLUSH 0.9% 10 ML SYRINGE IVP SCH ×3 (00:12→17:20)
[2022-10-26] MEDS: fentaNYL 100 MCG/2 ML VIAL IVP PRN ×2 (00:46→06:51)
[2022-10-26] MEDS: ACETAMINOPHEN 500 MG TABLET PO SCH ×4 (01:42→20:27)
[2022-10-26] MEDS: oxyCODONE 5 MG TABLET PO PRN ×3 (02:42→21:02)
[2022-10-26 05:51] LABS: BASOPHILS % (AUTO) 0.1 %; HCT - HEMATOCRIT 28.8 % (37.0-47.0); HGB - HEMOGLOBIN 9.5 g/dL (12.0-16.0); LYMPHOCYTES # (AUTO) 1.4 10^3/uL (1.5-3.5); MEAN CORPUSCULAR HEMOGLOBIN 30.8 pg (27.0-31.0); MEAN CORPUSCULAR VOLUME 93.5 fL (81.0-99.0); MEAN PLATELET VOLUME 9.6 fL (7.9-10.8); MONOCYTES # (AUTO) 1.4 10^3/uL (0.0-1.0); MONOCYTES % (AUTO) 11.6 %; NEUTROPHILS % (AUTO) 75.8 %; PLT - PLATELET COUNT 321 10^3/uL (130-450); RED BLOOD COUNT 3.08 10^6/uL (4.20-5.40); RED CELL DISTRIBUTION WIDTH 13.2 % (12.0-15.0); WHITE BLOOD COUNT 11.8 x10^3/uL (4.8-10.8)
[2022-10-26 06:10] LABS: % IRON SATURATION 9 % (20-50); IRON 29 ug/dL (28-170); TOTAL IRON BINDING CAPACITY 308 ug/dL (250-450); TRANSFERRIN 220 mg/dL (192-382)
[2022-10-26 06:32] LABS: FOLATE 18.53 ng/mL (5.90 - >24.8)
[2022-10-26] MEDS: CELECOXIB 100 MG CAPSULE PO SCH ×2 (08:01→20:22)
[2022-10-26] MEDS: ASPIRIN EC 81 MG TABLET PO SCH ×2 (08:01→20:21)
[2022-10-26] MEDS: ethyl alcohoL 62% SWAB AMPULE NAS SCH ×2 (08:01→20:22)
--- NOTE | 2022-10-26 09:27 | PROVIDER PROGRESS NOTE ---
Subjective - General Admit Date: 10/25/22 Procedure Date: 10/24/22 Post Op Days: 2 Procedure Performed: Right total hip arthroplasty - Other Other Information/Narrative: Sitting upright in bed with niece and sister Radha at bedside She was bathed overnight She reports she was up to bathroom with assist yesterday She is tolerating oral intake with low appetite. No bowel movements since surgery Purewick remains in place with good output per patient She states rehabilitation did not believe she was strong enough to ambulate on steps inhibiting a safe discharge She also reports a "scratchy" throat since surgery Objective - Patient Data Reviewed Vital Signs: Yes Vital Signs: Vital Signs x48h Temp Pulse Resp BP Pulse Ox 10/26/22 08:22 36.5 C 62 17 113/59 L 98 10/26/22 05:00 36.6 C 66 16 134/54 H 97 Weight: Weight 10/24/22 10/25/22 10/26/22 23:59 23:59 23:59 Weight (kg) 87.5 kg Intake & Output: Intake and Output Totals x24h 10/24/22 10/25/22 10/26/22 23:59 23:59 23:59 Intake Total 881 3087 Output Total 950 2800 600 Balance -69 287 -600 - Lab Results Lab Results: 10/26/22 05:32 Other Lab Results: Lab Results x24hrs 10/26/22 10/26/22 10/26/22 Range/Units 05:32 05:32 05:32 WBC 11.8 H (4.8-10.8) x10^3/uL RBC 3.08 L (4.20-5.40) 10^6/uL Hgb 9.5 L (12.0-16.0) g/dL Hct 28.8 L (37.0-47.0) % MCV 93.5 (81.0-99.0) fL MCH 30.8 (27.0-31.0) pg MCHC 33.0 (32.0-36.0) g/dL RDW 13.2 (12.0-15.0) % Plt Count 321 (130-450) 10^3/uL MPV 9.6 (7.9-10.8) fL Neut # (Auto) 9.0 H (1.5-6.6) 10^3/uL Lymph # (Auto) 1.4 L (1.5-3.5) 10^3/uL [place] # (Auto) 1.4 H (0.0-1.0) 10^3/uL Eos # (Auto) 0.0 (0.0-0.7) 10^3/uL Baso # (Auto) 0.0 (0.0-0.1) 10^3/uL Absolute Nucleated RBC 0.00 x10^3/uL Nucleated RBC % 0.0 /100WBC Iron 29 (28-170) ug/dL TIBC 308 (250-450) ug/dL % Saturation 9 L (20-50) % Transferrin 220 (192-382) mg/dL Vitamin B12 296 (180-914) pg/mL Folate 18.53 (5.90 - >24.8) ng/mL - Current Medications Current Medications: Current Medications Generic Name Dose Route Start Last Admin Trade Name Freq PRN Reason Stop Dose Admin Acetaminophen 1,000 mg 10/24/22 13:40 10/26/22 08:37 Acetaminophen 500 Mg Tablet PO 1,000 mg Q6H GABE Administration Alcohol 1 amp 10/24/22 21:00 10/26/22 08:01 Ethyl Alcohol 62% Swab Ampule CARLOS 1 amp BID GABE Administration Aspirin 81 mg 10/24/22 21:00 10/26/22 08:01 Aspirin Ec 81 Mg Tablet PO 81 mg BID GABE Administration Celecoxib 200 mg 10/24/22 21:00 10/26/22 08:01 Celecoxib 100 Mg Capsule PO 200 mg BID GABE Administration Fentanyl 25 mcg 10/24/22 15:16 10/26/22 06:51 Fentanyl 100 Mcg/2 Ml Vial IVP 25 mcg Q2HR PRN Administration Severe Breakthrough pain(8-10) Oxycodone HCl 5 mg 10/24/22 12:09 10/26/22 02:42 Oxycodone 5 Mg Tablet PO 5 mg Q6HR PRN Administration Severe Breakthrough pain(8-10) Sodium Chloride 10 ml 10/24/22 17:00 10/26/22 08:02 Sodium Chloride Flush 0.9% 10 Ml Syringe IVP 10 ml 0100,0900,1700 GABE Administration Sodium Chloride 10 ml 10/24/22 12:09 10/24/22 20:03 Sodium Chloride Flush 0.9% 10 Ml Syringe IVP 10 ml PRN PRN Administration NEEDED PER PROVIDER ORDERS Tramadol HCl 50 mg 10/24/22 18:53 10/25/22 23:36 Tramadol 50 Mg Tablet PO 50 mg Q6HR PRN Administration Hip Pain - Physical Exam Comments/Other: Well developed, well nourished, 67 year old female, no acute distress Alert and oriented x4 Well groomed Improved circulation to right foot compared to pre-operative assessment Dressing is dry and intact without drainage Ecchymosis about 5 cm proximal to right knee Neurovascular intact to right lower extremity, motion improved from yesterday ABX Reporting Has patient been on IV antibiotics over the past 48 hours?: No Impression/Plan - Problem List Problem List: 67-year-old female with a past medical history of depression is postoperative day 2 from a right total hip arthroplasty secondary to avascular necrosis by Dr. Lugo at [facility] on 10/24/2022. She is recovering well with improved pain control but continued weakness with ambulation. She is tolerating all oral diet without urinary retention but has had no bowel movements post operatively. She was admitted to [facility] on 10/25/2022 due to symptomatic anemia and weakness. She required IV narcotics for pain control twi ce overnight and tramadol several times. Episodes of hypertension yesterday evening have resolved. Plan: - Weightbearing as tolerated with front wheeled walker - Follow-up with orthopedic clinic within 1 week of discharge - Mepilex dressing to remain in place until follow-up,okay to shower or sponge bathe with dressing - Pain management with Tylenol, Celebrex and oxycodone as needed. Fentanyl IV and tramadol orally as second line analgesics. - Oral diet, fluids discontinued as tolerating oral diet without nausea or vomiting - Bowel regimen given narcotic use, schedule docusate sodium today with addition of Miralax as needed - Physical therapy and Occupational Therapy following. PT recommended discharge to SNF on post operative day 0 - Social work consulted for discharge planning to SNF - Hospitalist consult for management of symptomatic anemia. Hemoglobin stable today, low iron and % Saturation. CBC daily, Vitamin B12 and folate within normal limits - DVT prophylaxis with 81 mg of aspirin twice daily for 6 weeks and SCDs while in hospital - Check CMP given poor oral intake - Restart home medications today
[2022-10-26] MEDS ORDERED: polyethylene glycoL 3350 17 GM PACKET PO PRN (09:45)
[2022-10-26] MEDS ORDERED: DULoxetine 60 MG CAPSULE PO SCH (10:00)
[2022-10-26] MEDS ORDERED: tiZANidine 4 MG TABLET PO PRN (10:51)
--- NOTE | 2022-10-26 10:59 | CONSULTATION NOTE ---
Referring Provider Name of Referring Provider:: HAL Bustos for Dr uLgo Consult Date: 10/26/22 Chief Complaint - Chief Complaint Chief Complaint: Weakness and pain History of Present Illness - History Obtained From Records Reviewed: yes History obtained from: Chart review and the patient - History of Present Illness HPI Comment/Other: This is a 67-year-old white female with a history of borderline hypertension, osteoarthritis, anxiety and depression. She has had purple toes of the right foot and a slow to heal wound of the right great toe. She says she underwent arterial and venous work-up and everything was negative. 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 She developed worsening pain in the right hip which has had degenerative changes from arthritis. She had trial of injections into the hip in July of this year. She underwent preop cardiology evaluation with a dobutamine stress echo in 08/30, done for evaluating chest pain. This showed no areas of ischemia and no scar/infarction. There was no Doppler over valves done at that time. She does carry a diagnosis of a heart murmur, and I see no other Echoes at this facility that evaluated the murmur. She then was scheduled to have an elective right hip surgery which was successfully done on 10/24/2022. Postoperatively she was seen by physical therapy that same afternoon. The following day (yesterday) a PT assistant merchandiser saw her. The patient continues to need help with ambulating due to generalized weakness and R hip pain. She reports th at the right toes are no longer purple, they are now pink and red. Postop, on 10/25/2022, she was noted to have anemia with hemoglobin of 9.8 and her usual hemoglobin is 14, as it was preoperatively. The Orthopedic team has ordered B12, folate levels and iron panel and has requested a Hospitalist consult for which I am seeing her now. 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 She drinks rare alcohol. No illicit drug use Hx. - Substance History Use: Uses substance without health or social issues: NONE Meds/Allgy - Home Medications Home Medications: Ambulatory Orders Medication Instructions Recorded Confirmed Acetaminophen [Tylenol] 650 mg PO Q6H PRN 10/16/22 10/24/22 Cannabidiol (Cbd) [Epidiolex] 50 mg PO BID 10/16/22 10/24/22 DULoxetine [Cymbalta] 60 mg PO DAILY 10/16/22 10/24/22 Melatonin/Pyridoxine [Melatonin 5 1 each PO QPM PRN 10/16/22 10/24/22 mg Tablet] Meloxicam [Mobic] 15 mg PO DAILY 10/16/22 10/16/22 Zolpidem [Ambien] 5 mg PO HS PRN 10/16/22 10/16/22 metroNIDAZOLE 0.75% GEL [Flagyl 1 applic TOP BID 10/16/22 10/16/22 Gel] tiZANidine [Zanaflex] 4 mg PO Q8H PRN 10/16/22 10/24/22 oxyCODONE [Roxicodone] 5 mg PO Q4-6H PRN #28 tablet 10/24/22 traMADol [Ultram] 50 mg PO Q4-6H PRN #20 tablet 10/24/22 - Allergies Allergies/Adverse Reactions: Allergies Allergy/AdvReac Type Severity Reaction Status Date / Time No Known Drug Allergies Allergy Verified 09/04/22 12:10 Review of Systems - Musculoskeletal Musculoskeletal: reports: Other (Pain R hip. Has LESS pain toes of R foot, ever since this R hip surgery..) - All Other Systems All Other Systems: reports: Reviewed and negative Exam - Vital Signs Vital Signs: Vital Signs x48h Temp Pulse Resp BP Pulse Ox 10/26/22 08:22 36.5 C 62 17 113/59 L 98 10/26/22 05:00 36.6 C 66 16 134/54 H 97 - Physical Exam General Appearance: positive: No acute distress, Alert Eyes Bilateral: positive: Normal inspection, EOMI ENT: positive: ENT inspection nml, No signs of dehydration Neck: positive: Nml inspection, No JVD Respiratory: positive: No respiratory distress, Breath sounds nml Cardiovascular: positive: Regular rate & rhythm, No murmur Abdomen: positive: Non-tender, No distention, Other (Obese) Skin: positive: Warm, Dry Extremities: positive: Non-tender, No pedal edema, Other (Toes of both feet are pink and DP pulse of right foot is normal. There is a pinpoint black eschar on the very tip of the right great toe.) Conclusion/Plan - Problem List (1) Symptomatic anemia Conclusion/Plan: This is likely due to poor dietary intake of iron since the results show low iron but adequate B12 and folate. She might have also had additional blood loss during the orthopedic surgery Recommendation: Start daily iron tablets (I have ordered this) (2) Weakness Conclusion/Plan: This is a combination of the weakness of the right leg from under using it because of pain in the right hip and also from postop pain in that right hip. Recommendation: Continue with PT and OT Continue with plan for rehab as will be ordered by orthopedist (3) Status post hip surgery Conclusion/Plan: Recommend: Continue with DVT prophylaxis and pain management as per Ortho Recommend starting calcium replacement and vitamin D replacement in a female with Osteoarthritis. I have ordered these. - Lab Results Fish Bones: 10/26/22 05:32 - Other Other Results/Comments: Attestation: The patient is expected to stay greater than 2 midnights and is expected to be discharged or transferred to another facility within 96 hours: Yes.
[2022-10-26] MEDS: CALCIUM CARB (OYSTER SHELL) 500 MG TABLET PO SCH (11:25)
[2022-10-26] MEDS: DULoxetine 60 MG CAPSULE PO SCH (11:25)
[2022-10-26] MEDS: CHOLECALCIFEROL 400 UNIT TABLET PO SCH (11:25)
[2022-10-26] MEDS: traMADol 50 MG TABLET PO PRN (17:20)
[2022-10-26] MEDS: DOCUSATE SODIUM 100 MG CAPSULE PO SCH (20:22)
[2022-10-26] MEDS: ZOLPIDEM 5 MG TABLET PO PRN (21:02)
[2022-10-27] MEDS: SODIUM CHLORIDE FLUSH 0.9% 10 ML SYRINGE IVP SCH ×3 (02:29→16:18)
[2022-10-27] MEDS: ACETAMINOPHEN 500 MG TABLET PO SCH ×4 (02:29→21:53)
[2022-10-27 05:17] LABS: BASOPHILS % (AUTO) 0.4 %; EOSINOPHILS # (AUTO) 0.1 10^3/uL (0.0-0.7); HCT - HEMATOCRIT 28.8 % (37.0-47.0); HGB - HEMOGLOBIN 9.5 g/dL (12.0-16.0); LYMPHOCYTES # (AUTO) 3.5 10^3/uL (1.5-3.5); LYMPHOCYTES % (AUTO) 33.7 %; MEAN CORPUSCULAR HEMOGLOBIN 31.1 pg (27.0-31.0); MEAN CORPUSCULAR VOLUME 94.4 fL (81.0-99.0); MEAN PLATELET VOLUME 8.8 fL (7.9-10.8); MONOCYTES # (AUTO) 1.2 10^3/uL (0.0-1.0); MONOCYTES % (AUTO) 11.3 %; NEUTROPHILS # (AUTO) 5.6 10^3/uL (1.5-6.6); NEUTROPHILS % (AUTO) 53.1 %; PLT - PLATELET COUNT 301 10^3/uL (130-450); RED BLOOD COUNT 3.05 10^6/uL (4.20-5.40); RED CELL DISTRIBUTION WIDTH 13.5 % (12.0-15.0); WHITE BLOOD COUNT 10.5 x10^3/uL (4.8-10.8)
[2022-10-27 05:49] LABS: ALBUMIN 3.1 g/dL (3.2-5.5); BILIRUBIN,TOTAL 0.5 mg/dL (0.2-1.0); CALCIUM 8.5 mg/dL (8.5-10.3); CREATININE 0.6 mg/dL (0.4-1.0); POTASSIUM 3.6 mmol/L (3.5-5.0); TOTAL PROTEIN 6.3 g/dL (6.7-8.2)
--- NOTE | 2022-10-27 08:13 | PROVIDER PROGRESS NOTE ---
Assessment/Plan - Problem List (1) Symptomatic anemia Assessment/Plan: All labs reviewed. Her hemoglobin has been stable between 9.5 and 10, postop. I suspect blood loss anemia was the major cause of this hemoglobin drop compared to pre-op labs, in addition to having underlying iron deficiency anemia, which was found on lab work. Her B12 and folate levels were adequate. Plan: Check orthostatic vital signs which will help tell us how symptomatic she is>> Her supine heart rate was 90 and with standing HR was 110 (this is a 30 point increase consistent with orthostatic hypotension) Continue with daily oral iron therapy We can follow just her Hemoglobin daily, not her entire CBC. I adjusted the order (2) Iron deficiency anemia Assessment/Plan: Recommendation: Continue with daily iron oral therapy She was advised to increase her intake of green leafy vegetables (3) Weakness Assessment/Plan: This is multifactorial: she told me she "dragged" the right leg around for months because of how much pain she had in the right hip, she is now also postop and experiencing a different kind of pain, and she also has generalized weakness presumably from the marked anemia. Plan: Continue with PT and OT rehab Continue to treat the anemia Check orthostatic vital signs every shift, since orthostasis may also make her feel weak, and would then need additional treatment>> Her supine heart rate was 90 and with standing HR was 110 (this is a 30 point increase consistent with orthostatic hypotension) (4) Orthostatic hypotension Assessment/Plan: Because of ongoing weakness, I ordered orthostatic vital sign checks. On first check, her blood pressure systolic is stable from supine to sitting to standing, but heart rate supine was 90 which increased to 110 with standing. This is a 30 point increase in heart rate and anything over a 10 point increase reveals that she is orthostatic, has intravascular volume depletion Plan: We will give a liter of saline iv today I discussed drinkinging electrolyte-containing liquids after she is discharged, not just water. Her sister and her niece were in the room as well (5) Status post hip surgery Assessment/Plan: Plan: DVT prophylaxis, pain control, and rehab, as per the Orthopedic service [facility] should be discontinued, I ordered this - Current Meds Current Meds: Current Medications Generic Name Dose Route Start Last Admin Trade Name Freq PRN Reason Stop Dose Admin Acetaminophen 1,000 mg 10/24/22 13:40 10/27/22 02:29 Acetaminophen 500 Mg Tablet PO 1,000 mg Q6H GABE Administration Alcohol 1 amp 10/24/22 21:00 10/26/22 20:22 Ethyl Alcohol 62% Swab Ampule CARLOS 1 amp BID GABE Administration Aspirin 81 mg 10/24/22 21:00 10/26/22 20:21 Aspirin Ec 81 Mg Tablet PO 81 mg BID GABE Administration Calcium Carbonate/Glycine 500 mg 10/26/22 12:00 10/26/22 11:25 Calcium Carb (Oyster Shell) 500 Mg Tablet PO 500 mg DAILY GABE Administration Celecoxib 200 mg 10/24/22 21:00 10/26/22 20:22 Celecoxib 100 Mg Capsule PO 200 mg BID GABE Administration Cholecalciferol 400 unit 10/26/22 12:00 10/26/22 11:25 Cholecalciferol 400 Unit Tablet PO 400 unit DAILY GABE Administration Docusate Sodium 100 mg 10/26/22 21:00 10/26/22 20:22 Docusate Sodium 100 Mg Capsule PO 100 mg BID GABE Administration Duloxetine HCl 60 mg 10/26/22 11:00 10/26/22 11:25 Duloxetine 60 Mg Capsule PO 60 mg DAILY GABE Administration Fentanyl 25 mcg 10/24/22 15:16 10/26/22 06:51 Fentanyl 100 Mcg/2 Ml Vial IVP 25 mcg Q2HR PRN Administration Severe Breakthrough pain(8-10) Oxycodone HCl 5 mg 10/24/22 12:09 10/26/22 21:02 Oxycodone 5 Mg Tablet PO 5 mg Q6HR PRN Administration Severe Breakthrough pain(8-10) Sodium Chloride 10 ml 10/24/22 17:00 10/27/22 02:29 Sodium Chloride Flush 0.9% 10 Ml Syringe IVP 10 ml 0100,0900,1700 GABE Administration Sodium Chloride 10 ml 10/24/22 12:09 10/24/22 20:03 Sodium Chloride Flush 0.9% 10 Ml Syringe IVP 10 ml PRN PRN Administration NEEDED PER PROVIDER ORDERS Tramadol HCl 50 mg 10/24/22 18:53 10/26/22 17:20 Tramadol 50 Mg Tablet PO 50 mg Q6HR PRN Administration Hip Pain Zolpidem Tartrate 5 mg 10/26/22 10:51 10/26/22 21:02 Zolpidem 5 Mg Tablet PO 5 mg HS PRN Administration NEEDED PER PROVIDER ORDERS - Lab Result Fish Bone Diagrams: 10/27/22 05:10 10/27/22 05:10 - Additional Planning My Orders: My Active Orders 10/26/22 10:51 Zolpidem [Ambien] 5 mg PO HS PRN metroNIDAZOLE 0.75% GEL [Flagyl Gel] 1 applic TOP BID PRN tiZANidine [Zanaflex] 4 mg PO Q8H PRN 10/26/22 11:00 DULoxetine [Cymbalta] 60 mg PO DAILY 10/26/22 12:00 Calcium Carb (Oyster Shell) [Oysco-500] 500 mg PO DAILY Cholecalciferol [Vitamin D3] 400 unit PO DAILY 10/27/22 08:09 Orthostatic [Vital Signs - Orthostatic] [RC] QSHIFT 10/28/22 05:00 HGB - HEMOGLOBIN [HEME] DAILYLAB 10/29/22 05:00 HGB - HEMOGLOBIN [HEME] DAILYLAB 10/30/22 05:00 HGB - HEMOGLOBIN [HEME] DAILYLAB 10/31/22 05:00 HGB - HEMOGLOBIN [HEME] DAILYLAB Subjective - Subjective Patient Reports: Feeling Better (Pain is under better control. She is eager to start walking today) Objective Vital Signs: Vital Signs - 24 hr 10/26/22 10/26/22 10/26/22 08:22 12:06 15:22 Temperature 36.5 C 36.4 C L 36.3 C L Heart Rate [ 62 76 91 Brachial] Respiratory 17 17 17 Rate Blood Pressure 113/59 L 135/75 H 141/74 H [Right Brachial artery] O2 Saturation 98 99 98 10/26/22 10/27/22 10/27/22 20:25 02:31 06:42 Temperature 36.9 C 36.7 C 37.0 C Heart Rate [ 69 77 77 Brachial] Respiratory 16 16 16 Rate Blood Pressure 144/61 H 136/63 H 132/61 H [Right Brachial artery] O2 Saturation 98 97 96 Oxygen O2 Source Room air I&O (Last 24 Hrs): Intake and Output Totals x24h 10/25/22 10/26/22 10/27/22 23:59 23:59 23:59 Intake Total 3087 1320 Output Total 2800 1250 200 Balance 287 70 -200 General: Alert, Oriented x3 HEENT: Atraumatic, Mucous membr. moist/pink Neck: Supple, No JVD Neuro: Alert, Non Focal Cardiovascular: Regular rate Respiratory: No respiratory distress Abdomen: Soft, No tenderness Extremities: No clubbing, No edema - Results Results: Laboratory Results WBC 10.5 x10^3/uL (4.8-10.8) 10/27/22 05:10 RBC 3.05 10^6/uL (4.20-5.40) L 10/27/22 05:10 Hgb 9.5 g/dL (12.0-16.0) L 10/27/22 05:10 Hct 28.8 % (37.0-47.0) L 10/27/22 05:10 MCV 94.4 fL (81.0-99.0) 10/27/22 05:10 MCH 31.1 pg (27.0-31.0) H 10/27/22 05:10 MCHC 33.0 g/dL (32.0-36.0) 10/27/22 05:10 RDW 13.5 % (12.0-15.0) 10/27/22 05:10 Plt Count 301 10^3/uL (130-450) 10/27/22 05:10 MPV 8.8 fL (7.9-10.8) 10/27/22 05:10 Neut # (Auto) 5.6 10^3/uL (1.5-6.6) 10/27/22 05:10 Lymph # (Auto) 3.5 10^3/uL (1.5-3.5) 10/27/22 05:10 [place] # (Auto) 1.2 10^3/uL (0.0-1.0) H 10/27/22 05:10 Eos # (Auto) 0.1 10^3/uL (0.0-0.7) 10/27/22 05:10 Baso # (Auto) 0.0 10^3/uL (0.0-0.1) 10/27/22 05:10 Absolute Nucleated RBC 0.00 x10^3/uL 10/27/22 05:10 Nucleated RBC % 0.0 /100WBC 10/27/22 05:10 Manual Slide Review Indicated 10/25/22 04:28 WBC Morphology NORMAL APPEARANCE (NORMAL) 10/25/22 04:28 Platelet Estimate NORMAL (130-450,000) (NORMAL) 10/25/22 04:28 Platelet Morphology NORMAL APPEARANCE (NORMAL) 10/25/22 04:28 RBC Morph Micro Appear NORMAL APPEARANCE (NORMAL) 10/25/22 04:28 Sodium 142 mmol/L (135-145) 10/27/22 05:10 Potassium 3.6 mmol/L (3.5-5.0) 10/27/22 05:10 Chloride 104 mmol/L (101-111) 10/27/22 05:10 Carbon Dioxide 27 mmol/L (21-32) 10/27/22 05:10 Anion Gap 11.0 (6-13) 10/27/22 05:10 BUN 12 mg/dL (6-20) 10/27/22 05:10 Creatinine 0.6 mg/dL (0.4-1.0) 10/27/22 05:10 Estimated GFR (MDRD) 100 (>89) 10/27/22 05:10 Glucose 104 mg/dL (70-100) H 10/27/22 05:10 POC Whole Bld Glucose 94 mg/dL (70 - 100) 10/24/22 08:09 Calcium 8.5 mg/dL (8.5-10.3) 10/27/22 05:10 Iron 29 ug/dL (28-170) 10/26/22 05:32 TIBC 308 ug/dL (250-450) 10/26/22 05:32 % Saturation 9 % (20-50) L 10/26/22 05:32 Transferrin 220 mg/dL (192-382) 10/26/22 05:32 Total Bilirubin 0.5 mg/dL (0.2-1.0) 10/27/22 05:10 AST 21 IU/L (10-42) 10/27/22 05:10 ALT 20 IU/L (10-60) 10/27/22 05:10 Alkaline Phosphatase 43 IU/L (42-121) 10/27/22 05:10 Total Protein 6.3 g/dL (6.7-8.2) L 10/27/22 05:10 Albumin 3.1 g/dL (3.2-5.5) L 10/27/22 05:10 Globulin 3.2 g/dL (2.1-4.2) 10/27/22 05:10 Albumin/Globulin Ratio 1.0 (1.0-2.2) 10/27/22 05:10 Vitamin B12 296 pg/mL (180-914) 10/26/22 05:32 Folate 18.53 ng/mL (5.90 - >24.8) 10/26/22 05:32
[2022-10-27] MEDS: oxyCODONE 5 MG TABLET PO PRN ×2 (08:49→19:07)
[2022-10-27] MEDS: DOCUSATE SODIUM 100 MG CAPSULE PO SCH ×2 (08:50→21:27)
[2022-10-27] MEDS: CHOLECALCIFEROL 400 UNIT TABLET PO SCH (08:50)
[2022-10-27] MEDS: ASPIRIN EC 81 MG TABLET PO SCH ×2 (08:50→21:27)
[2022-10-27] MEDS: CALCIUM CARB (OYSTER SHELL) 500 MG TABLET PO SCH (08:51)
[2022-10-27] MEDS: ethyl alcohoL 62% SWAB AMPULE NAS SCH ×2 (08:55→21:28)
[2022-10-27] MEDS: CELECOXIB 100 MG CAPSULE PO SCH ×2 (09:38→21:28)
[2022-10-27] MEDS: DULoxetine 60 MG CAPSULE PO SCH (09:38)
--- NOTE | 2022-10-27 10:46 | PROVIDER PROGRESS NOTE ---
Subjective - General Admit Date: 10/25/22 Procedure Date: 10/24/22 Post Op Days: 3 Procedure Performed: Right total hip arthroplasty - Review of Systems All Other Systems: positive: Reviewed and negative - Other Other Information/Narrative: Sitting upright in chair eating breakfast and drinking coffee with niece and sister Pain control improved today Patient reports working with physical therapy on the stairs twice yesterday with good success She endorses improved sleep (best in 8 months per patient) No chest pain, dyspnea, nausea, emesis No reported bowel movements, states she took miralax prior to my arrival Objective - Patient Data Reviewed Vital Signs: Yes Vital Signs: Vital Signs x48h Temp Pulse Resp BP Pulse Ox 10/27/22 06:42 37.0 C 77 16 132/61 H 96 Intake & Output: Intake and Output Totals x24h 10/25/22 10/26/22 10/27/22 23:59 23:59 23:59 Intake Total 3087 1320 580 Output Total 2800 1250 1000 Balance 287 70 -420 - Lab Results Lab Results: 10/27/22 05:10 10/27/22 05:10 Other Lab Results: Lab Results x24hrs 10/27/22 10/27/22 Range/Units 05:10 05:10 WBC 10.5 (4.8-10.8) x10^3/uL RBC 3.05 L (4.20-5.40) 10^6/uL Hgb 9.5 L (12.0-16.0) g/dL Hct 28.8 L (37.0-47.0) % MCV 94.4 (81.0-99.0) fL MCH 31.1 H (27.0-31.0) pg MCHC 33.0 (32.0-36.0) g/dL RDW 13.5 (12.0-15.0) % Plt Count 301 (130-450) 10^3/uL MPV 8.8 (7.9-10.8) fL Neut # (Auto) 5.6 (1.5-6.6) 10^3/uL Lymph # (Auto) 3.5 (1.5-3.5) 10^3/uL [place] # (Auto) 1.2 H (0.0-1.0) 10^3/uL Eos # (Auto) 0.1 (0.0-0.7) 10^3/uL Baso # (Auto) 0.0 (0.0-0.1) 10^3/uL Absolute Nucleated RBC 0.00 x10^3/uL Nucleated RBC % 0.0 /100WBC Sodium 142 (135-145) mmol/L Potassium 3.6 (3.5-5.0) mmol/L Chloride 104 (101-111) mmol/L Carbon Dioxide 27 (21-32) mmol/L Anion Gap 11.0 (6-13) BUN 12 (6-20) mg/dL Creatinine 0.6 (0.4-1.0) mg/dL Estimated GFR (MDRD) 100 (>89) Glucose 104 H (70-100) mg/dL Calcium 8.5 (8.5-10.3) mg/dL Total Bilirubin 0.5 (0.2-1.0) mg/dL AST 21 (10-42) IU/L ALT 20 (10-60) IU/L Alkaline Phosphatase 43 (42-121) IU/L Total Protein 6.3 L (6.7-8.2) g/dL Albumin 3.1 L (3.2-5.5) g/dL Globulin 3.2 (2.1-4.2) g/dL Albumin/Globulin Ratio 1.0 (1.0-2.2) - Current Medications Current Medications: Current Medications Generic Name Dose Route Start Last Admin Trade Name Freq PRN Reason Stop Dose Admin Acetaminophen 1,000 mg 10/24/22 13:40 10/27/22 08:46 Acetaminophen 500 Mg Tablet PO 1,000 mg Q6H GABE Administration Alcohol 1 amp 10/24/22 21:00 10/27/22 08:55 Ethyl Alcohol 62% Swab Ampule CARLOS 1 amp BID GABE Administration Aspirin 81 mg 10/24/22 21:00 10/27/22 08:50 Aspirin Ec 81 Mg Tablet PO 81 mg BID GABE Administration Calcium Carbonate/Glycine 500 mg 10/26/22 12:00 10/27/22 08:51 Calcium Carb (Oyster Shell) 500 Mg Tablet PO 500 mg DAILY GABE Administration Celecoxib 200 mg 10/24/22 21:00 10/27/22 09:38 Celecoxib 100 Mg Capsule PO 200 mg BID GABE Administration Cholecalciferol 400 unit 10/26/22 12:00 10/27/22 08:50 Cholecalciferol 400 Unit Tablet PO 400 unit DAILY GABE Administration Docusate Sodium 100 mg 10/26/22 21:00 10/27/22 08:50 Docusate Sodium 100 Mg Capsule PO 100 mg BID GABE Administration Duloxetine HCl 60 mg 10/26/22 11:00 10/27/22 09:38 Duloxetine 60 Mg Capsule PO 60 mg DAILY GABE Administration Fentanyl 25 mcg 10/24/22 15:16 10/26/22 06:51 Fentanyl 100 Mcg/2 Ml Vial IVP 25 mcg Q2HR PRN Administration Severe Breakthrough pain(8-10) Oxycodone HCl 5 mg 10/24/22 12:09 10/27/22 08:49 Oxycodone 5 Mg Tablet PO 5 mg Q6HR PRN Administration Severe Breakthrough pain(8-10) Polyethylene Glycol 17 gm 10/26/22 09:45 10/27/22 08:54 Polyethylene Glycol 3350 17 Gm Packet PO 17 gm DAILY PRN Administration Bowel Protocol Sodium Chloride 10 ml 10/24/22 17:00 10/27/22 08:51 Sodium Chloride Flush 0.9% 10 Ml Syringe IVP 10 ml 0100,0900,1700 GABE Administration Sodium Chloride 10 ml 10/24/22 12:09 10/24/22 20:03 Sodium Chloride Flush 0.9% 10 Ml Syringe IVP 10 ml PRN PRN Administration NEEDED PER PROVIDER ORDERS Tramadol HCl 50 mg 10/24/22 18:53 10/26/22 17:20 Tramadol 50 Mg Tablet PO 50 mg Q6HR PRN Administration Hip Pain Zolpidem Tartrate 5 mg 10/26/22 10:51 10/26/22 21:02 Zolpidem 5 Mg Tablet PO 5 mg HS PRN Administration NEEDED PER PROVIDER ORDERS - Physical Exam Comments/Other: Well-developed, well-nourished, 67-year-old female, no acute distress Alert and oriented x4 Neurovascular intact to right lower extremity Dressing dry and intact without drainage ABX Reporting Has patient been on IV antibiotics over the past 48 hours?: No Impression/Plan - Problem List Problem List: 67-year-old female with a past medical history of depression is postoperative day 3 from a right total hip arthroplasty secondary to avascular necrosis by Dr. Lugo at [facility] on 10/24/2022. She continues to recover from her right total hip arthroplasty with improved pain control. She continued to have weakness when working with physical therapy yesterday but has increased ability to navigate stairs and ambulate. Her appetite is increasing however she still has had no bowel movements. She was admitted to [facility] on 10/25/2022 due to symptomatic anemia and weakness. Plan: - Weightbearing as tolerated with front wheeled walker - Follow-up with orthopedic clinic within 1 week of discharge - Mepilex dressing to remain in place until follow-up,okay to shower or sponge bathe with dressing - Pain management with Tylenol, Celebrex and oxycodone as needed. Fentanyl IV and tramadol orally as second line analgesics. - Oral diet, fluids discontinued as tolerating oral diet without nausea or vomiting - Bowel regimen given narcotic use, schedule docusate sodium today with addition of Miralax as needed - Physical therapy and Occupational Therapy following. PT recommending discharge to SNF - Social work consulted for discharge planning to SNF - Hospitalist consult for management of symptomatic anemia. Hemoglobin stable today, iron pills started by internal medicine physician - Calcium and vitamin D initiated yesterday for treatment of osteoporosis - DVT prophylaxis with 81 mg of aspirin twice daily for 6 weeks and SCDs while in hospital
[2022-10-27] MEDS: SODIUM CHLORIDE FLUSH 0.9% 10 ML SYRINGE IVP PRN (11:46)
[2022-10-27] MEDS ORDERED: SODIUM CHLORIDE 0.9% 1,000 ML IV SCH (12:00)
[2022-10-27] MEDS: traMADol 50 MG TABLET PO PRN (13:20)
[2022-10-27] MEDS: ZOLPIDEM 5 MG TABLET PO PRN (21:28)
[2022-10-28] MEDS: SODIUM CHLORIDE FLUSH 0.9% 10 ML SYRINGE IVP SCH ×3 (00:05→22:00)
[2022-10-28] MEDS: ACETAMINOPHEN 500 MG TABLET PO SCH ×4 (03:14→22:02)
[2022-10-28] MEDS: oxyCODONE 5 MG TABLET PO PRN ×3 (06:08→20:14)
[2022-10-28] MEDS ORDERED: NS W/20 MEQ KCL 1,000 ML IV SCH (09:00)
--- NOTE | 2022-10-28 09:00 | PROVIDER PROGRESS NOTE ---
Assessment/Plan - Problem List (1) Orthostatic hypotension Assessment/Plan: Because of ongoing weakness, I ordered orthostatic vital sign checks. All vital signs were reviewed. Yesterday due to orthostasis, I ordered 1 L of NS infused over the entire day. Yesterday I discussed drinkinging electrolyte-containing liquids after she is discharged, not just water. Her sister and her niece were in the room as well Today she continues to have orthostasis by virtue of an excessive increase in heart rate when she stands. This orthostasis indicates continued intravascular volume depletion Plan: We will give another liter of saline w/ KCl iv today. I explained this plan to the patient today. (2) Symptomatic anemia All labs reviewed. Her hemoglobin has been stable between 9.5 and 10, postop. I suspect blood loss anemia was the major cause of this hemoglobin drop compared to pre-op labs, in addition to having underlying iron deficiency anemia, which was found on lab work. Her B12 and folate levels were adequate. Recommendation: Continue to follow orthostatic vital signs which will help tell us how symptomatic she is Continue with daily oral iron therapy Follow Hemoglobin daily, transfuse if hemoglobin goes under 7 (3) Iron deficiency anemia Assessment/Plan: Recommendation: Continue with daily iron oral therapy She was advised to increase her intake of green leafy vegetables (4) Weakness Assessment/Plan: Improving This is multifactorial: she told me she "dragged" the right leg around for months because of how much pain she had in the right hip, she is now also postop and experiencing a different kind of pain, and she also has generalized weakness presumably from the marked anemia. Yesterday was the first time she walked in the hallway and tried to climb stairs. Plan: Continue with PT and OT rehab. Her sister will be staying with her for 2 weeks after discharge and she thinks this will be enough help for her so that she could be discharged home and not to a SNF. Continue to treat the anemia Continue to follow orthostatic vital signs (5) Status post hip surgery Assessment/Plan: I ordered the Garcia be discontinued Plan: DVT prophylaxis, pain control, and rehab, as per the Orthopedic service - Current Meds Current Meds: Current Medications Generic Name Dose Route Start Last Admin Trade Name Freq PRN Reason Stop Dose Admin Acetaminophen 1,000 mg 10/27/22 15:00 10/28/22 03:14 Acetaminophen 500 Mg Tablet PO 1,000 mg Q6H GABE Administration Alcohol 1 amp 10/24/22 21:00 10/27/22 21:28 Ethyl Alcohol 62% Swab Ampule CARLOS 1 amp BID GABE Administration Aspirin 81 mg 10/24/22 21:00 10/27/22 21:27 Aspirin Ec 81 Mg Tablet PO 81 mg BID GABE Administration Calcium Carbonate/Glycine 500 mg 10/26/22 12:00 10/27/22 08:51 Calcium Carb (Oyster Shell) 500 Mg Tablet PO 500 mg DAILY GABE Administration Celecoxib 200 mg 10/24/22 21:00 10/27/22 21:28 Celecoxib 100 Mg Capsule PO 200 mg BID GABE Administration Cholecalciferol 400 unit 10/26/22 12:00 10/27/22 08:50 Cholecalciferol 400 Unit Tablet PO 400 unit DAILY GABE Administration Docusate Sodium 100 mg 10/26/22 21:00 10/27/22 21:27 Docusate Sodium 100 Mg Capsule PO 100 mg BID GABE Administration Duloxetine HCl 60 mg 10/26/22 11:00 10/27/22 09:38 Duloxetine 60 Mg Capsule PO 60 mg DAILY GABE Administration Fentanyl 25 mcg 10/24/22 15:16 10/26/22 06:51 Fentanyl 100 Mcg/2 Ml Vial IVP 25 mcg Q2HR PRN Administration Severe Breakthrough pain(8-10) Oxycodone HCl 5 mg 10/24/22 12:09 10/28/22 06:08 Oxycodone 5 Mg Tablet PO 5 mg Q6HR PRN Administration Severe Breakthrough pain(8-10) Polyethylene Glycol 17 gm 10/26/22 09:45 10/27/22 08:54 Polyethylene Glycol 3350 17 Gm Packet PO 17 gm DAILY PRN Administration Bowel Protocol Sodium Chloride 10 ml 10/24/22 17:00 10/28/22 00:05 Sodium Chloride Flush 0.9% 10 Ml Syringe IVP 10 ml 0100,0900,1700 GABE Administration Sodium Chloride 10 ml 10/24/22 12:09 10/27/22 11:46 Sodium Chloride Flush 0.9% 10 Ml Syringe IVP 10 ml PRN PRN Administration NEEDED PER PROVIDER ORDERS Tramadol HCl 50 mg 10/24/22 18:53 10/27/22 13:20 Tramadol 50 Mg Tablet PO 50 mg Q6HR PRN Administration Hip Pain Zolpidem Tartrate 5 mg 10/26/22 10:51 10/27/22 21:28 Zolpidem 5 Mg Tablet PO 5 mg HS PRN Administration NEEDED PER PROVIDER ORDERS - Lab Result Fish Bone Diagrams: 10/28/22 05:33 10/27/22 05:10 - Additional Planning My Orders: My Active Orders 10/27/22 08:09 Orthostatic [Vital Signs - Orthostatic] [RC] QSHIFT 10/28/22 09:00 NS 0.9% w/20 MEQ KCL @ 83.333 mls/hr Ns W/20 Meq KCl [Normal Saline 0.9% W/20 M eq KCl] 1,000 ml IV 83.333 mls/hr 10/29/22 05:00 HGB - HEMOGLOBIN [HEME] DAILYLAB 10/30/22 05:00 HGB - HEMOGLOBIN [HEME] DAILYLAB 10/31/22 05:00 HGB - HEMOGLOBIN [HEME] DAILYLAB Subjective - Subjective Patient Reports: Resting Comfortably, Other (She has more swelling in R hip but is motivated to walk today) Objective Vital Signs: Vital Signs - 24 hr 10/27/22 10/28/22 16:19 00:04 Temperature 36.7 C 36.7 C Heart Rate [ 94 96 Brachial] Respiratory 16 16 Rate Blood Pressure 135/70 H 144/69 H [Left Brachial artery] O2 Saturation 99 96 Oxygen O2 Source Room air I&O (Last 24 Hrs): Intake and Output Totals x24h 10/26/22 10/27/22 10/28/22 23:59 23:59 23:59 Intake Total 1320 4730 Output Total 1250 1400 450 Balance 70 3330 -450 General: Alert, Oriented x3 HEENT: Mucous membr. moist/pink Neck: Supple Neuro: Alert, Non Focal Cardiovascular: Regular rate Respiratory: No respiratory distress Abdomen: Soft, Other (Obese) Extremities: No clubbing, No edema - Results Results: Laboratory Results WBC 10.5 x10^3/uL (4.8-10.8) 10/27/22 05:10 RBC 3.05 10^6/uL (4.20-5.40) L 10/27/22 05:10 Hgb 9.5 g/dL (12.0-16.0) L 10/28/22 05:33 Hct 28.8 % (37.0-47.0) L 10/27/22 05:10 MCV 94.4 fL (81.0-99.0) 10/27/22 05:10 MCH 31.1 pg (27.0-31.0) H 10/27/22 05:10 MCHC 33.0 g/dL (32.0-36.0) 10/27/22 05:10 RDW 13.5 % (12.0-15.0) 10/27/22 05:10 Plt Count 301 10^3/uL (130-450) 10/27/22 05:10 MPV 8.8 fL (7.9-10.8) 10/27/22 05:10 Neut # (Auto) 5.6 10^3/uL (1.5-6.6) 10/27/22 05:10 Lymph # (Auto) 3.5 10^3/uL (1.5-3.5) 10/27/22 05:10 [place] # (Auto) 1.2 10^3/uL (0.0-1.0) H 10/27/22 05:10 Eos # (Auto) 0.1 10^3/uL (0.0-0.7) 10/27/22 05:10 Baso # (Auto) 0.0 10^3/uL (0.0-0.1) 10/27/22 05:10 Absolute Nucleated RBC 0.00 x10^3/uL 10/27/22 05:10 Nucleated RBC % 0.0 /100WBC 10/27/22 05:10 Manual Slide Review Indicated 10/25/22 04:28 WBC Morphology NORMAL APPEARANCE (NORMAL) 10/25/22 04:28 Platelet Estimate NORMAL (130-450,000) (NORMAL) 10/25/22 04:28 Platelet Morphology NORMAL APPEARANCE (NORMAL) 10/25/22 04:28 RBC Morph Micro Appear NORMAL APPEARANCE (NORMAL) 10/25/22 04:28 Sodium 142 mmol/L (135-145) 10/27/22 05:10 Potassium 3.6 mmol/L (3.5-5.0) 10/27/22 05:10 Chloride 104 mmol/L (101-111) 10/27/22 05:10 Carbon Dioxide 27 mmol/L (21-32) 10/27/22 05:10 Anion Gap 11.0 (6-13) 10/27/22 05:10 BUN 12 mg/dL (6-20) 10/27/22 05:10 Creatinine 0.6 mg/dL (0.4-1.0) 10/27/22 05:10 Estimated GFR (MDRD) 100 (>89) 10/27/22 05:10 Glucose 104 mg/dL (70-100) H 10/27/22 05:10 POC Whole Bld Glucose 94 mg/dL (70 - 100) 10/24/22 08:09 Calcium 8.5 mg/dL (8.5-10.3) 10/27/22 05:10 Iron 29 ug/dL (28-170) 10/26/22 05:32 TIBC 308 ug/dL (250-450) 10/26/22 05:32 % Saturation 9 % (20-50) L 10/26/22 05:32 Transferrin 220 mg/dL (192-382) 10/26/22 05:32 Total Bilirubin 0.5 mg/dL (0.2-1.0) 10/27/22 05:10 AST 21 IU/L (10-42) 10/27/22 05:10 ALT 20 IU/L (10-60) 10/27/22 05:10 Alkaline Phosphatase 43 IU/L (42-121) 10/27/22 05:10 Total Protein 6.3 g/dL (6.7-8.2) L 10/27/22 05:10 Albumin 3.1 g/dL (3.2-5.5) L 10/27/22 05:10 Globulin 3.2 g/dL (2.1-4.2) 10/27/22 05:10 Albumin/Globulin Ratio 1.0 (1.0-2.2) 10/27/22 05:10 Vitamin B12 296 pg/mL (180-914) 10/26/22 05:32 Folate 18.53 ng/mL (5.90 - >24.8) 10/26/22 05:32
--- NOTE | 2022-10-28 09:28 | PROVIDER PROGRESS NOTE ---
Subjective - General Admit Date: 10/25/22 Procedure Date: 10/24/22 Post Op Days: 4 Procedure Performed: Right total hip arthroplasty - Review of Systems All Other Systems: positive: Reviewed and negative - Other Other Information/Narrative: Unaccompanied sitting upright in chair Pain is well controlled She states she was able to ambulate the halls yesterday with assist Small bowel movement this morning Continuing to drink fluid tolerating oral diet without nausea or vomiting Slept well last night No nausea, vomiting, chest pain or just Objective - Patient Data Reviewed Vital Signs: Yes Intake & Output: Intake and Output Totals x24h 10/26/22 10/27/22 10/28/22 23:59 23:59 23:59 Intake Total 1320 4730 240 Output Total 1250 1400 450 Balance 70 3330 -210 - Lab Results Lab Results: 10/28/22 05:33 10/27/22 05:10 Other Lab Results: Lab Results x24hrs 10/28/22 Range/Units 05:33 Hgb 9.5 L (12.0-16.0) g/dL - Current Medications Current Medications: Current Medications Generic Name Dose Route Start Last Admin Trade Name Emeterioq PRN Reason Stop Dose Admin Acetaminophen 1,000 mg 10/27/22 15:00 10/28/22 03:14 Acetaminophen 500 Mg Tablet PO 1,000 mg Q6H GABE Administration Alcohol 1 amp 10/24/22 21:00 10/27/22 21:28 Ethyl Alcohol 62% Swab Ampule CARLOS 1 amp BID GABE Administration Aspirin 81 mg 10/24/22 21:00 10/27/22 21:27 Aspirin Ec 81 Mg Tablet PO 81 mg BID AGBE Administration Calcium Carbonate/Glycine 500 mg 10/26/22 12:00 10/27/22 08:51 Calcium Carb (Oyster Shell) 500 Mg Tablet PO 500 mg DAILY GABE Administration Celecoxib 200 mg 10/24/22 21:00 10/27/22 21:28 Celecoxib 100 Mg Capsule PO 200 mg BID GABE Administration Cholecalciferol 400 unit 10/26/22 12:00 10/27/22 08:50 Cholecalciferol 400 Unit Tablet PO 400 unit DAILY GABE Administration Docusate Sodium 100 mg 10/26/22 21:00 10/27/22 21:27 Docusate Sodium 100 Mg Capsule PO 100 mg BID GABE Administration Duloxetine HCl 60 mg 10/26/22 11:00 10/27/22 09:38 Duloxetine 60 Mg Capsule PO 60 mg DAILY GABE Administration Fentanyl 25 mcg 10/24/22 15:16 10/26/22 06:51 Fentanyl 100 Mcg/2 Ml Vial IVP 25 mcg Q2HR PRN Administration Severe Breakthrough pain(8-10) Oxycodone HCl 5 mg 10/24/22 12:09 10/28/22 06:08 Oxycodone 5 Mg Tablet PO 5 mg Q6HR PRN Administration Severe Breakthrough pain(8-10) Polyethylene Glycol 17 gm 10/26/22 09:45 10/27/22 08:54 Polyethylene Glycol 3350 17 Gm Packet PO 17 gm DAILY PRN Administration Bowel Protocol Sodium Chloride 10 ml 10/24/22 17:00 10/28/22 00:05 Sodium Chloride Flush 0.9% 10 Ml Syringe IVP 10 ml 0100,0900,1700 GABE Administration Sodium Chloride 10 ml 10/24/22 12:09 10/27/22 11:46 Sodium Chloride Flush 0.9% 10 Ml Syringe IVP 10 ml PRN PRN Administration NEEDED PER PROVIDER ORDERS Tramadol HCl 50 mg 10/24/22 18:53 10/27/22 13:20 Tramadol 50 Mg Tablet PO 50 mg Q6HR PRN Administration Hip Pain Zolpidem Tartrate 5 mg 10/26/22 10:51 10/27/22 21:28 Zolpidem 5 Mg Tablet PO 5 mg HS PRN Administration NEEDED PER PROVIDER ORDERS - Physical Exam Comments/Other: Well-developed, well-nourished, 67-year-old female, no acute distress. Dressing is dry and intact without drainage. No evidence of hematoma. She is alert and oriented x4. Neurovascular intact to the right lower extremity, increased knee extension today ABX Reporting Has patient been on IV antibiotics over the past 48 hours?: No Impression/Plan - Problem List Problem List: 67-year-old female with a past medical history of depression is postoperative day 4 from a right total hip arthroplasty secondary to avascular necrosis by Dr. Lugo at [facility] on 10/24/2022. She has improved pain control and strength with ambulation. She was admitted to [facility] on 10/25/2022 due to symptomatic and weakness and was noted to have orthostatic hypotension. She is now status post IV fluid resuscitation for orthostatic hypotension but continues to be symptomatic. Plan: - Weightbearing as tolerated with front wheeled walker - Follow-up with orthopedic clinic within 1 week of discharge - Mepilex dressing to remain in place until follow-up, okay to bathe with dressing - Pain management with Tylenol, Celebrex and oxycodone as needed. Fentanyl IV and tramadol orally as second line analgesics. - Oral diet - IV fluid resuscitation secondary to orthostatic hypotension, managed by internal medicine - Bowel regimen given narcotic use, schedule docusate sodium today with addition of Miralax as needed - Physical therapy and Occupational Therapy following. PT recommending discharge to SNF or possibly home - Social work consulted for discharge planning to SNF - Hospitalist consult for management of symptomatic anemia. Hemoglobin stable today, oral iron repletion started by internal medicine physician during hospital stay - Calcium and vitamin D initiated yesterday for treatment of osteoporosis - DVT prophylaxis with 81 mg of aspirin twice daily for 6 weeks and SCDs while in hospital - Low albumin indicating need for improved nutrition
[2022-10-28] MEDS: CELECOXIB 100 MG CAPSULE PO SCH ×2 (09:36→22:00)
[2022-10-28] MEDS: DOCUSATE SODIUM 100 MG CAPSULE PO SCH ×2 (09:37→22:00)
[2022-10-28] MEDS: CALCIUM CARB (OYSTER SHELL) 500 MG TABLET PO SCH (09:37)
[2022-10-28] MEDS: ethyl alcohoL 62% SWAB AMPULE NAS SCH ×2 (09:37→22:00)
[2022-10-28] MEDS: CHOLECALCIFEROL 400 UNIT TABLET PO SCH (09:37)
[2022-10-28] MEDS: ASPIRIN EC 81 MG TABLET PO SCH ×2 (09:37→22:00)
[2022-10-28] MEDS: DULoxetine 60 MG CAPSULE PO SCH (09:37)
[2022-10-28] MEDS: SENNA 8.6 MG TABLET PO SCH ×4 (09:37→23:51)
[2022-10-28] MEDS: SODIUM CHLORIDE FLUSH 0.9% 10 ML SYRINGE IVP PRN (10:16)
[2022-10-28] MEDS: traMADol 50 MG TABLET PO PRN (15:25)
[2022-10-28] MEDS: ZOLPIDEM 5 MG TABLET PO PRN (22:00)
[2022-10-29] MEDS: traMADol 50 MG TABLET PO PRN ×2 (00:40→13:23)
[2022-10-29] MEDS: SODIUM CHLORIDE FLUSH 0.9% 10 ML SYRINGE IVP SCH ×2 (00:54→13:14)
[2022-10-29] MEDS: ACETAMINOPHEN 500 MG TABLET PO SCH ×3 (04:04→15:44)
[2022-10-29] MEDS: DULoxetine 60 MG CAPSULE PO SCH (09:44)
[2022-10-29] MEDS: ASPIRIN EC 81 MG TABLET PO SCH (09:44)
[2022-10-29] MEDS: CHOLECALCIFEROL 400 UNIT TABLET PO SCH (09:44)
[2022-10-29] MEDS: CELECOXIB 100 MG CAPSULE PO SCH (09:44)
[2022-10-29] MEDS: ethyl alcohoL 62% SWAB AMPULE NAS SCH (09:44)
[2022-10-29] MEDS: CALCIUM CARB (OYSTER SHELL) 500 MG TABLET PO SCH (09:44)
[2022-10-29] MEDS: oxyCODONE 5 MG TABLET PO PRN ×2 (09:47→15:43)
[2022-10-29] MEDS: DOCUSATE SODIUM 100 MG CAPSULE PO SCH (09:54)
[2022-10-29] MEDS ORDERED: DOCUSATE SODIUM 100 MG CAPSULE PO PRN (11:23)
--- NOTE | 2022-10-29 12:18 | Discharge Plan ---
Discharge Plan Problem Reviewed?: Yes Disposition: 06 Home Health Service Condition: Stable Prescriptions: oxyCODONE [Roxicodone] 5 mg PO Q4-6H PRN #28 tablet PRN Reason: Pain >8 traMADol [Ultram] 50 mg PO Q4-6H PRN #20 tablet PRN Reason: Pain 5-7 Diet: Regular Activity Restrictions: Wt Bearing as Tolerated Shower Restrictions: No Driving Restrictions: Yes (no driving) Assistance Devices: Walker Weight Bearing: Full Weight (as tolerated) Instruction Topics: Dystrophy Reflex Sympathetic, Dystrophy Reflex Sympathetic Tx Health Concerns: You have a long history of multiple surgeries to your back and your leg. You started developing increasing right leg pain for the last 3 months. It was agonizing. You started using a walker on a full-time basis. Getting dressed, getting out of a car, and walking or even prolonged sitting was getting to be impossible. 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 Unfortunately you had undergone a hip joint injection July 17, 2022. Surgery was delayed until 3 months later to make sure that there would be no increased risk of infection. You underwent an elective hip repair, October 24, 2022. You still have some residual leg swelling. Postoperatively you did develop low blood pressure every time you try to stand. In addition you had a high pulse with that. It took you a couple of extra days to recover from that. Today your blood pressure is stable when you stand. You still have a little bit of right leg swelling. You have a mild postoperative anemia that is not unusual. Normal amount of hemoglobin for you is 14.7. You have drifted down to 8.7 after surgery. Plan of Treatment: HAL Whitfield, has already called in prescriptions that you're niece and sister have picked up for you with regards to pain. Those are oxycodone and tramadol. Avoid constipation with plenty of water intake, a stool softener such as colace once or twice a day, and plenty of fruit in your diet. See the orthopedic office in the next 1 to 2 weeks so they can take a look at your leg and do an x-ray. Your hip wound needs to be kept clean and dry. You can take a shower. Nothing special needs to be done except to keep dry. No hot tubs or long baths. We have ordered home health physical therapy and Occupational Therapy to improve your mobility and strength. Your current plan is to have your niece and sister stay with you for the next couple of weeks to make sure you are taking care of.You tested your ability to climb stairs by using the stairs here. You walked up the stairs twice and did well. 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 This can be at your thigh or at your foot. This was present even before you had surgery. The newer, modern term, for reflex and pathetic dystrophy is complex regional pain syndrome. Please see if physical therapy would be able to help you with this. You are weightbearing as tolerated on the operated on leg. No driving for the next couple of weeks until you see orthopedic surgery. Care Goals: You would like to stay living in your current housing situation. You live with your niece and live and attach part of the house. We will do that indefinitely by remaining as mobile as possible. Once you can no longer get up the stairs, you will consider moving elsewhere. Assessment: Patient is alert, oriented, able to make her own decisions. Both sister and niece were at the bedside in discussing her discharge. Follow-Up Care: Home Health - RN, Home Health - PT, Home Health - OT No Smoking: If you smoke, Please STOP! Call for help. Follow-up with: Zoila Dunham PA-C [Primary Care Provider] -
--- NOTE | 2022-10-29 12:43 | DISCHARGE SUMMARY ---
"Discharge Summary Admit Date: 10/25/22 Discharge Date: 10/29/22 Discharging Provider: Dr. Lugo, Sunitha Arriola [facility], Dr. Forrest Primary Care Provider: HAL Munoz Code Status: Attempt Resuscitation Condition at Discharge: Stable Discharge Disposition: 06 Home Health Service - DIAGNOSES Admission Diagnoses: Right total hip arthroplasty Avascular necrosis of right femur Iron deficiency anemia Symptomatic anemia Weakness Orthostatic hypotension Depression Osteoporosis Discharge Diagnoses with Status of Each Condition: Right total hip arthroplasty - stable Avascular Necrosis of right femur - stable Iron deficiency anemia - stable, initiated oral iron repletion Symptomatic anemia - stable Weakness - improved Orthostatic hypotension - improved Depression - stable Osteoporosis - stable, initiated calcium and vitamin D supplementation - HPI History of Present Illness: 67-year-old female developed insidious onset of right hip pain starting in March 2022. Pain was progressive leading patient to present for orthopedic evaluation early 2022. She underwent corticosteroid injection under fluoroscopic guidance and was found to have avascular necrosis of the femoral head after injection had been administered. Both the patient and the orthopedic surgeon agreed to proceed with right total hip arthroplasty to treat avascular necrosis 3 months after corticosteroid injection to minimize risk of prosthetic joint infection. Patient presented to [facility] on 10/24/2022 for elective total right hip arthroplasty with Dr. Lugo secondary to femoral avascular necrosis. Patient planned to discharge home on post operative day 1 with out patient surgery status. - CONSULTS | PROCEDURES Consultations: Dr. Forrest Procedures: Surgical elective total hip arthroplasty on 10/24/2022, no complications X-ray of pelvis, right hip on 10/24/2022, expected post surgical changes for total hip arthroplasty EKG on 10/24/[address]ations, normal sinus rhythm - HOSPITAL COURSE Hospital Course: Elective right total hip arthroplasty on 10/24/2022 without immediate complication. Postoperatively physical therapy recommended discharge to long term facility given weakness during rehabilitation sessions. The same day, the patient was found to have postoperative anemia with a hemoglobin drop from 14.7 to 9.8 on postoperative day 1. She was admitted to the hospital for symptomatic anemia and weakness. Iron studies were obtained as well as a B12 and a folate level. Vitamin B12 was within normal limits as was folate. She was found to have low iron and initiated on oral iron repletion by hospitalist physician. Her hemoglobin was relatively stable during admission and did not require transfusion. On postoperative day 2 she was found to have orthostatic hypotension and required a 1 L IV bolus on postoperative day 2 and postoperative day 3 with improved orthostatic hypotension. She was also found to have hypertension which was controlled with improved oral analgesics. She had no bowel movements for 5 days post operatively and was started on docusate sodium and Miralax with bowel movement produced prior to discharge. In the immediate post operative period she had a catheter given urinary retention which resolved by post operative day 2. Throughout her admission, pain was managed with Tylenol, Celebrex, oxycodone as needed, tramadol as needed and IV fentanyl as needed. She required IV narcotics on postoperative day 1 and 2 only. She was discharged home with tramadol and oxycodone for pain management. On postoperative day 5 she had improved strength and ability to weight-bear and ambulate on stairs with physical therapy and Occupational Therapy rehabilitation. She was discharged home on postoperative day 5 with resumption of home medications and addition of vitamin D, calcium, iron and oxycodone and tramadol as needed after surgery. - ALLERGIES Allergies/Adverse Reactions: Allergies Allergy/AdvReac Type Severity Reaction Status Date / Time No Known Drug Allergies Allergy Verified 09/04/22 12:10 - MEDICATIONS Home Medications: Ambulatory Orders Medication Instructions Recorded Confirmed Acetaminophen [Tylenol] 650 mg PO Q6H PRN 10/16/22 10/24/22 Cannabidiol (Cbd) [Epidiolex] 50 mg PO BID 10/16/22 10/24/22 DULoxetine [Cymbalta] 60 mg PO DAILY 10/16/22 10/24/22 Melatonin/Pyridoxine [Melatonin 5 1 each PO QPM PRN 10/16/22 10/24/22 mg Tablet] Meloxicam [Mobic] 15 mg PO DAILY 10/16/22 10/16/22 Zolpidem [Ambien] 5 mg PO HS PRN 10/16/22 10/16/22 metroNIDAZOLE 0.75% GEL [Flagyl 1 applic TOP BID 10/16/22 10/16/22 Gel] tiZANidine [Zanaflex] 4 mg PO Q8H PRN 10/16/22 10/24/22 oxyCODONE [Roxicodone] 5 mg PO Q4-6H PRN #28 tablet 10/24/22 traMADol [Ultram] 50 mg PO Q4-6H PRN #20 tablet 10/24/22 Ascorbic Acid [Vitamin C] 500 mg ORAL DAILY #30 tablet 10/29/22 Ferrous Gluconate 324 mg PO DAILY #30 tablet 10/29/22 - PHYSICAL EXAM AT DISCHARGE General Appearance: positive: No acute distress Physical Exam Other/Comments: Well-developed, well-nourished, 67-year-old female, no acute distress Alert and oriented sitting upright in bed, comfortable Dressing is dry and intact without drainage. No evidence of hematoma Neurovascular intact to right lower extremity - LABS Result Diagrams: 10/29/22 06:00 10/27/22 05:10 - FOLLOW UP Follow Up: Follow-up with [facility] orthopedics within 1 week of discharge Follow-up with your PCP regarding anemia and orthostatic hypotension Home health physical therapy has been ordered and scheduled - TIME SPENT Time Spent in Discharge (Minutes): 25"
[2022-10-29 15:45] VITALS: BP 111/60
== END 2022-10-29 15:50 | disposition home health service (06) | DRG 812 ==
LOC: SDS 07:14 → MS2 13:45 → SDS 10-25 16:47
PROVIDERS: ADMIT Physician Assistant Surgical; ATTEND Orthopaedic Surgery
DX: M87.9 Osteonecrosis, unspecified (principal); M16.7 Other unilateral secondary osteoarthritis of hip; R33.9 Retention of urine, unspecified; D64.9 Anemia, unspecified; D50.9 Iron deficiency anemia, unspecified; E66.9 Obesity, unspecified; Z68.33 Body mass index [BMI] 33.0-33.9, adult; F32.A Depression, unspecified; M81.0 Age-related osteoporosis without current pathological fracture; I95.1 Orthostatic hypotension; I10 Essential (primary) hypertension; F41.9 Anxiety disorder, unspecified; R53.1 Weakness; Z79.899 Other long term (current) drug therapy; Z96.641 Presence of right artificial hip joint
CPT/HCPCS: 27130; 36415; 72170; 80053; 82607; 82746; 83540; 84466; 85018; 85025; 97116; 97161; 97167; 97530; 97535; A9270; J1170; J3370; J3490; J7120

== ENCOUNTER 2022-11-04 20:15 | Outpatient (CLI) | payer MEDICARE | END 2022-11-04 20:16 | disposition EMS.NT | LOC: EMS 20:15 | DX: Z03.89 Encounter for observation for other suspected diseases and conditions ruled out (principal) ==

== ENCOUNTER 2022-11-04 21:02 | Emergency (ER) | payer MEDICARE ==
[2022-11-04 21:21] VITALS: BP 177/66
[2022-11-04] MEDS ORDERED: SULFAMETH/TRIMETH DS 800/160 MG TABLET PO STA (22:09)
--- NOTE | 2022-11-04 22:12 | ED Physician Documentation ---
PD HPI LOWER EXT INJURY - Stated complaint Stated Complaint: RT HIP DRAINAGE - Chief complaint Chief Complaint: Trauma Ext - History obtained from History obtained from: Patient - Additional information Additional information: The patient comes to the emergency department chief complaint of drainage from her right hip incision site. She had a total hip arthroplasty 11 days ago and states that ever since the surgery, she has had a little bit of drainage from the wound. They have not been able to figure out why, but the patient states that now, she is having more drainage than she was. This has been going on since yesterday. The patient states that she has soaked much of the dressing. We will she also states that she has noticed increased pain and swelling of her leg. She does note that she started PT recently and she has been very active with PT. She was already getting up and around before and states she has not done much laying around since the surgery. She denies any fevers or chills. Her leg has not been red. No chest pain or shortness of breath. No history of DVT. No other complaints at this time. PD PAST MEDICAL HISTORY - Past Medical History Cardiovascular: Murmur Respiratory: None Endocrine/Autoimmune: None GI: None : None HEENT: Chronic vision loss, Other Psych: None Musculoskeletal: Osteoarthritis Derm: Rosacea - Past Surgical History Ortho: Carpal Tunnel surgery, Spine surgery, Other /[employer]: section, Hysterectomy, Other HEENT: Tonsil/Adenoidectomy - Present Medications Home Medications: Ambulatory Orders Medication Instructions Recorded Confirmed Acetaminophen [Tylenol] 650 mg PO Q6H PRN 10/16/22 10/24/22 Cannabidiol (Cbd) [Epidiolex] 50 mg PO BID 10/16/22 10/24/22 DULoxetine [Cymbalta] 60 mg PO DAILY 10/16/22 10/24/22 Melatonin/Pyridoxine [Melatonin 5 1 each PO QPM PRN 10/16/22 10/24/22 mg Tablet] Meloxicam [Mobic] 15 mg PO DAILY 10/16/22 10/16/22 Zolpidem [Ambien] 5 mg PO HS PRN 10/16/22 10/16/22 metroNIDAZOLE 0.75% GEL [Flagyl 1 applic TOP BID 10/16/22 10/16/22 Gel] tiZANidine [Zanaflex] 4 mg PO Q8H PRN 10/16/22 10/24/22 oxyCODONE [Roxicodone] 5 mg PO Q4-6H PRN #28 tablet 10/24/22 traMADol [Ultram] 50 mg PO Q4-6H PRN #20 tablet 10/24/22 Ascorbic Acid [Vitamin C] 500 mg ORAL DAILY #30 tablet 10/29/22 Ferrous Gluconate 324 mg PO DAILY #30 tablet 10/29/22 Sulfamethox/Trimeth 800/160 1 each PO BID #14 tablet 11/04/22 [Bactrim Ds 800/160] - Allergies Allergies/Adverse Reactions: Allergies Allergy/AdvReac Type Severity Reaction Status Date / Time No Known Drug Allergies Allergy Verified 11/04/22 21:20 PD ED PE NORMAL - Vitals Vital signs reviewed: Yes - General General: Alert and oriented X 3, No acute distress, Well developed/nourished - HEENT HEENT: Atraumatic, PERRL, EOMI, Moist mucous membranes - Neck Neck: Supple, no meningeal sign - Cardiac Cardiac: RRR, No murmur, Strong equal pulses - Respiratory Respiratory: No respiratory distress, Clear bilaterally - Derm Derm: Normal color, Warm and dry, No rash, Other (Surgical incision site over her lateral right hip which actually appears mostly quite good. No erythema, induration beyond expected postoperatively, or edema at the incision site itself. 1 cm of inferior most wound not well adhesed, with tiny amount of serosanguineous fluid expressible ) - Extremities Extremities: No deformity, Other (Moderate edema right lower extremity) - Neuro Neuro: Alert and oriented X 3 - Psych Psych: Normal mood, Normal affect Results - Vitals Vitals: Oxygen O2 Source Room air PD Medical Decision Making - ED course Complexity details: considered differential, d/w patient ED course: I discussed with the patient that her wound does not appear distinctly infected, and the fluid that is expressible is a fairly small amount and is serosanguineous. However, I do not have a good explanation for why the patient has wound dehiscence at the bottom of her incision and since she has had increased pain and swelling and the leakage of fluid, I will go ahead and start her on antibiotics. As far as the pain and swelling in the leg, the patient has recently been doing PT after a major surgery and this may be part of the reason for the pain and swelling. However, I have discussed with her the concern for postoperative DVT, as well. Unfortunately, it being Saturday and weekend, we do not have ultrasound available. The patient is not very keen on getting ultrasound anyway she does not think it is a clot, but I have tried to impress upon her that it is important to rule this out. I have advised her that we will have ultrasound available at 9:00 in the morning and she may return to have this evaluation done. Regardless, I would like her to call her orthopedist office to discuss the state of the wound, and she states she will do this. The patient states she will also consider coming back for ultrasound. I have prescribed antibiotics for the patient. We have discussed the usual indications for return to Departure - Departure Disposition: 01 Home, Self Care Clinical Impression: Postoperative wound infection of right hip Condition: Stable Instructions: ED Wound Infec After Surgery Prescriptions: Sulfamethox/Trimeth 800/160 [Bactrim Ds 800/160] 1 each PO BID #14 tablet Comments: Your wound does not look distinctly infected and overall, actually looks pretty good. However, you have had persistent drainage and there is some cloudy discharge that is expressible from a small area in your upper wound, and because of this, we will go ahead and start you on an antibiotic. It is possible that you just have a postoperative seroma that is slowly draining from the bottom of your wound, but unfortunately, since we do not have ultrasound here tonight, we cannot assess this with certainty. The other consideration for your swollen and painful leg is whether or not you have a blood clot. It sounds like you have been fairly active since her surgery, and certainly, having just started PT, it is possible that the more vigorous activity with PT has generated some inflammation and swelling that has tracked down your leg. However, if you continue to notice increasing swelling and discomfort in the leg, you should have an ultrasound to rule out a blood clot. We will have ultrasound here during the day tomorrow according to the schedule, and if you come in after 9:00 in the morning, you should be able to get this assessed if you wish. You have been given your first dose of antibiotics tonight. Please pick the remainder up at the [facility] pharmacy, where your prescription has been electronically transmitted at your request. Discharge Date/Time: 11/04/22 22:35
== END 2022-11-04 22:35 | disposition home or self-care (01) ==
LOC: ED 21:02
DX: T81.49XA Infection following a procedure, other surgical site, initial encounter (principal); L08.9 Local infection of the skin and subcutaneous tissue, unspecified; T81.31XA Disruption of external operation (surgical) wound, not elsewhere classified, initial encounter; Z79.899 Other long term (current) drug therapy
CPT/HCPCS: 99282; 99283; A9270

== ENCOUNTER 2022-11-19 15:20 | Outpatient (CLI) | payer MEDICARE | END 2022-11-19 15:21 | disposition critical access hospital (66) | LOC: EMS 15:20 | DX: G89.18 Other acute postprocedural pain (principal); M25.551 Pain in right hip; M79.89 Other specified soft tissue disorders | CPT/HCPCS: A0425; A0427 ==

== ENCOUNTER 2022-11-19 15:36 | Emergency (ER) | payer MEDICARE ==
--- NOTE | 2022-11-19 15:46 | ED Physician Documentation ---
History of Present Illness - Stated complaint Stated Complaint: R HIP PX - Chief complaint Chief Complaint: Ext Problem - History obtained from History obtained from: Patient, EMS - History of Present Illness Timing: How many days ago (3) Pain level max: 7 Pain level now: 6 - Additonal information Additional information: Patient is a 67-year-old female status post right total hip replacement [address] Lugo at this hospital. She states 3 days ago started having increased pain. Pain continued to increase today, she was told by Dr. Lugo to call the ambulance to bring her to the hospital. Patient received 100 mcg of fentanyl on route and pain improved. She states she has not fallen. She does not have any numbness or tingling in the leg. EMS states that there is a good pulse in the dorsalis pedis. Review of Systems Constitutional: denies: Fever, Chills Ears: denies: Ear pain Nose: denies: Rhinorrhea / runny nose, Congestion GI: denies: Vomiting, Diarrhea Skin: denies: Rash Musculoskeletal: denies: Neck pain, Back pain Neurologic: denies: Headache PD PAST MEDICAL HISTORY - Past Medical History Cardiovascular: Murmur Respiratory: None Endocrine/Autoimmune: None GI: None : None HEENT: Chronic vision loss, Other Psych: None Musculoskeletal: Osteoarthritis Derm: Rosacea - Past Surgical History Ortho: Carpal Tunnel surgery, Spine surgery, Other /[employer]IAISON: section, Hysterectomy, Other HEENT: Tonsil/Adenoidectomy - Present Medications Home Medications: Ambulatory Orders Medication Instructions Recorded Confirmed Acetaminophen [Tylenol] 650 mg PO Q6H PRN 10/16/22 11/19/22 Cannabidiol (Cbd) [Epidiolex] 50 mg PO BID 10/16/22 11/19/22 DULoxetine [Cymbalta] 60 mg PO DAILY 10/16/22 11/19/22 Melatonin/Pyridoxine [Melatonin 5 1 each PO QPM PRN 10/16/22 11/19/22 mg Tablet] Zolpidem [Ambien] 5 mg PO HS PRN 10/16/22 11/19/22 tiZANidine [Zanaflex] 4 mg PO Q8H PRN 10/16/22 11/19/22 oxyCODONE [Roxicodone] 5 mg PO Q4-6H PRN #28 tablet 10/24/22 11/19/22 traMADol [Ultram] 50 mg PO Q4-6H PRN #20 tablet 10/24/22 11/19/22 Ascorbic Acid [Vitamin C] 500 mg ORAL DAILY #30 tablet 10/29/22 11/19/22 Ferrous Gluconate 324 mg PO DAILY #30 tablet 10/29/22 11/19/22 Oxycodone HCl/Acetaminophen 1 tab PO Q6H PRN #14 tablet MDD 3 11/19/22 [Percocet 10-325 mg Tablet] - Allergies Allergies/Adverse Reactions: Allergies Allergy/AdvReac Type Severity Reaction Status Date / Time No Known Drug Allergies Allergy Verified 11/19/22 15:42 PD ED PE NORMAL - Vitals Vital signs reviewed: Yes - General General: Alert and oriented X 3, No acute distress - HEENT HEENT: Moist mucous membranes - Neck Neck: Supple, no meningeal sign - Cardiac Cardiac: RRR, Strong equal pulses - Respiratory Respiratory: No respiratory distress, Clear bilaterally - Abdomen Abdomen: Soft, Non tender, Non distended - Back Back: No spinal TTP - Derm Derm: Warm and dry - Extremities Extremities: Other (There is tenderness to palpation over the right hip, no gross deformity. Leg is not shortened or rotated. Neurovascularly intact. There is no evidence of infection to the wound. Limited range of motion secondary to pain.) - Neuro Neuro: Alert and oriented X 3 - Psych Psych: Normal mood, Normal affect Results - Vitals Vitals: Vital Signs - 24 hr 11/19/22 11/19/22 15:42 16:58 Temperature 36.9 C Heart Rate 72 67 Respiratory 18 16 Rate Blood Pressure 135/45 H 107/71 O2 Saturation 97 97 Oxygen O2 Source Room air - Labs Labs: Laboratory Tests 11/19/22 11/19/22 15:56 15:56 WBC 10.7 RBC 3.43 L Hgb 10.4 L Hct 32.0 L MCV 93.3 MCH 30.3 MCHC 32.5 RDW 13.2 Plt Count 366 MPV 9.4 Neut # (Auto) 6.8 H Lymph # (Auto) 2.2 Orange # (Auto) 1.6 H Eos # (Auto) 0.1 Baso # (Auto) 0.0 Absolute Nucleated RBC 0.00 Band Neuts % (Manual) Not Reportable Abnorm Lymph % (Manual) Not Reportable Nucleated RBC % 0.0 Neutrophils # (Manual) Not Reportable Lymphocytes # (Manual) Not Reportable Monocytes # (Manual) Not Reportable Eosinophils # (Manual) Not Reportable Basophils # (Manual) Not Reportable Differential Comment MANUAL=AUTO DIFF Manual Slide Review Indicated Platelet Estimate NORMAL (130-450,000) Platelet Morphology NORMAL APPEARANCE RBC Morph Micro Appear NORMAL APPEARANCE Sodium 136 Potassium 3.4 L Chloride 104 Carbon Dioxide 24 Anion Gap 8.0 BUN 14 Creatinine 0.8 Estimated GFR (MDRD) 72 L Glucose 117 H Calcium 9.3 - Rads (name of study) Right hip x-ray Relevant Findings:: Final report received, See rad report PD Medical Decision Making - ED course Complexity details: reviewed results, re-evaluated patient, considered differential, d/w patient, d/w family Reviewed Lab Results: No significant findings on CBC or electrolytes. ED course: No acute findings on x-ray of the hip. No evidence of dislocation. No clinical evidence of infection. Pain well controlled after a dose of IV Dilaudid and oral oxycodone. Patient states she is currently on 5 mg of oxycodone at home. She states that after her other surgeries she was on 10 mg and requests increased pain medication for home. We will prescribe her a small amount of pain medication. I did discuss the case with her surgeon, Dr. Lugo, he will follow-up with her tomorrow. Patient will continue to use her walker at home. Patient counseled regarding signs and symptoms for which I believe and urgent re-evaluation would be necessary. Patient with good understanding of and agreement to plan and is comfortable going home at this time This document was made in part using voice recognition software. While efforts are made to proofread this document, sound alike and grammatical errors may occur. Departure - Departure Disposition: 01 Home, Self Care Clinical Impression: Postoperative pain Condition: Good Instructions: ED Post Op Pain Follow-Up: Angelo Lugo MD [Provider Admit Priv/Credential] - Tomorrow Prescriptions: Oxycodone HCl/Acetaminophen [Percocet 10-325 mg Tablet] 1 tab PO Q6H PRN #14 tablet MDD 3 PRN Reason: pain Comments: Your prescription was sent to [facility] in [place]. Dr. Lugo will follow- up with you tomorrow. Please return if you worsen. Please continue to use your walker at home. I am prescribing a short course of narcotic pain medication for you. These are potentially dangerous and addictive medications that should be used carefully. These medications may constipate you. Take an mplq-asb-pegqfec stool softener (docusate) twice daily with plenty of water while taking these medications. If you go 24 hours without a bowel movement, take anzq-wbs-[id number] miralax, per package instructions. Do not drink or drive while taking these medications. If you received narcotic or sedating medications while in the emergency department, do not drive for 24 hours. Store this medication in a safe, secure place and out of reach of children. It is a violation of federal law to give or sell this medication to another person or to use in a manner other than prescribed. The ED will not refill narcotic prescriptions, including prescriptions lost or stolen. To dispose of unwanted medications: 1. [facility] at [address] in [place] has a medication drop box. They accept prescription medications (in pill form) Saturday through Saturday 9:00 a.m. to 5:00 p.m. 2. [facility] [employer] accepts prescription medications (in pill form only) for disposal year round. Call for more information. 3. Contact the [facility] for the next [facility] sponsored prescription drug collection event. , [phone], or [phone]; Discharge Date/Time: 11/19/22 17:18
[2022-11-19 16:09] LABS: CALCIUM 9.3 mg/dL (8.5-10.3); CREATININE 0.8 mg/dL (0.4-1.0); POTASSIUM 3.4 mmol/L (3.5-5.0)
[2022-11-19 16:18] LABS: BASOPHILS % (AUTO) 0.4 %; EOSINOPHILS # (AUTO) 0.1 10^3/uL (0.0-0.7); EOSINOPHILS % (AUTO) 0.6 %; HGB - HEMOGLOBIN 10.4 g/dL (12.0-16.0); LYMPHOCYTES # (AUTO) 2.2 10^3/uL (1.5-3.5); LYMPHOCYTES % (AUTO) 20.1 %; MEAN CORPUSCULAR HEMOGLOBIN 30.3 pg (27.0-31.0); MEAN CORPUSCULAR HGB CONC 32.5 g/dL (32.0-36.0); MEAN CORPUSCULAR VOLUME 93.3 fL (81.0-99.0); MEAN PLATELET VOLUME 9.4 fL (7.9-10.8); MONOCYTES # (AUTO) 1.6 10^3/uL (0.0-1.0); MONOCYTES % (AUTO) 15.2 %; NEUTROPHILS # (AUTO) 6.8 10^3/uL (1.5-6.6); NEUTROPHILS % (AUTO) 63.3 %; PLT - PLATELET COUNT 366 10^3/uL (130-450); RED BLOOD COUNT 3.43 10^6/uL (4.20-5.40); RED CELL DISTRIBUTION WIDTH 13.2 % (12.0-15.0); WHITE BLOOD COUNT 10.7 x10^3/uL (4.8-10.8)
[2022-11-19] MEDS ORDERED: HYDROmorphone 1 MG/ML CARPUJECT IVP STA (16:18)
[2022-11-19 16:20] LABS: SLIDE REVIEW? Indicated
[2022-11-19] MEDS ORDERED: oxyCODONE 5 MG TABLET PO STA (16:34)
[2022-11-19 16:41] LABS: PLATELET ESTIMATE, MANUAL NORMAL (130-450,000) (NORMAL); PLATELET MORPHOLOGY NORMAL APPEARANCE (NORMAL); RBC MORPHOLOGY (MULTIPLE) NORMAL APPEARANCE (NORMAL)
[2022-11-19 16:42] LABS: DIFFERENTIAL COMMENT MANUAL=AUTO DIFF
--- NOTE | 2022-11-19 16:53 | XRAY Report ---
PROCEDURE: Hip w/Pelvis 2-3V RT INDICATIONS: R hip pain s/p surgery TECHNIQUE: AP pelvis with lateral view(s) of the right hip(s). COMPARISON: X-ray pelvis, 10/24/2022. FINDINGS: Bones: Right hip arthroplasty. The prosthesis appears intact. There is an osseous density over the g reater trochanter, unchanged. No acute fractures or dislocations. No suspicious bony lesions. Dege nerative disc and facet disease in the lower lumbar spine. Note is made of mild to moderate left hip joint degeneration. Soft tissues: No suspicious soft tissue calcifications or masses. IMPRESSION: Stable postsurgical changes Reviewed by: Nery Madrigal MD on 11/19/2022 4:51 PM PDT Approved by: Nery Madrigal MD on 11/19/2022 4:51 PM PDT Station ID: [id number]
[2022-11-19 17:01] VITALS: BP 107/71
== END 2022-11-19 17:18 | disposition home or self-care (01) ==
LOC: EDUNIT# → ED 15:36
DX: G89.18 Other acute postprocedural pain (principal); M25.551 Pain in right hip; Z79.899 Other long term (current) drug therapy
CPT/HCPCS: 36415; 73502; 80048; 85025; 96374; 99284; A9270; J1170

== ENCOUNTER 2022-11-19 17:40 | Outpatient (CLI) | payer MEDICARE | END 2022-11-19 17:41 | disposition EMS.NT | LOC: EMS 17:40 | DX: Z74.09 Other reduced mobility (principal) ==

== ENCOUNTER 2022-12-06 08:00 | Outpatient (CLI) | payer MEDICARE ==
--- NOTE | 2022-12-06 18:59 | XRAY Report ---
PROCEDURE: Hip 2 View RT INDICATIONS: RIGHT HIP PAIN TECHNIQUE: 2 views of the hip were acquired. COMPARISON: 11/19/2022 FINDINGS: Bones: No acute fractures or dislocations. No suspicious bony lesions. Stable postsurgical changes of right total hip arthroplasty. Postsurgical alignment is unchanged. No evidence for hardware loosening or failure. The other visualized structures appear unremarkable. Soft tissues: No suspicious soft tissue calcifications or masses. IMPRESSION: Right hip without acute fracture or dislocation. Stable postsurgical changes and alignment of right t otal hip arthroplasty without evidence for hardware complication. Reviewed by: Al Land MD on 12/06/2022 6:58 PM PDT Approved by: Al Land MD on 12/06/2022 6:58 PM PDT Station ID: [id number]
== END 2022-12-06 23:59 | disposition home or self-care (01) ==
LOC: DI.WOS 08:00
PROVIDERS: ATTEND Physician Assistant Surgical
DX: Z96.641 Presence of right artificial hip joint (principal)

== ENCOUNTER 2023-04-23 08:00 | Outpatient (CLI) | payer MEDICARE ==
--- NOTE | 2023-04-23 15:05 | XRAY Report ---
PROCEDURE: Hip 2 View LT INDICATIONS: LEFT HIP PAIN TECHNIQUE: 2 views of the left hip were acquired. COMPARISON: None. FINDINGS: Bones: No fractures or dislocations. No suspicious bony lesions. Moderate left hip osteoarthritic d egenerative change with osseous hypertrophy and mild joint space narrowing. Right hip arthroplasty. Soft tissues: No suspicious soft tissue calcifications or masses. IMPRESSION: Moderate left hip osteoarthritic. Reviewed by: Lauryn Becekr MD, PhD on 04/23/2023 3:04 PM PST Approved by: Lauryn Becker MD, PhD on 04/23/2023 3:04 PM PST Station ID: [id number]
== END 2023-04-23 23:59 | disposition home or self-care (01) ==
LOC: DI.WOS 08:00
PROVIDERS: ATTEND Orthopaedic Surgery
DX: M16.12 Unilateral primary osteoarthritis, left hip (principal)

== ENCOUNTER 2023-05-21 08:00 | Outpatient (CLI) | payer MEDICARE ==
--- NOTE | 2023-05-21 19:27 | XRAY Report ---
PROCEDURE: Shoulder 3 View LT INDICATIONS: LEFT SHOULDER PAIN TECHNIQUE: 4 views of the shoulder were acquired. COMPARISON: None. FINDINGS: Bones: No fractures or dislocations. Normal glenohumeral alignment. Moderate acromioclavicular joint space narrowing and juxta-articular osteophytosis. Coracoclavicular is congruent. No suspicious bony lesions. Visualized ribs appear intact. Soft tissues: No suspicious soft tissue calcifications. The visualized lungs are within normal limi ts. IMPRESSION: 1.No acute bony abnormality. 2.Moderate acromioclavicular joint osteoarthritis. Reviewed by: Josh Perera MD on 05/21/2023 7:25 PM PST Approved by: Josh Perera MD on 05/21/2023 7:25 PM PST Station ID: [id number]
== END 2023-05-21 23:59 | disposition home or self-care (01) ==
LOC: DI.WOS 08:00
PROVIDERS: ATTEND Orthopaedic Surgery
DX: M19.012 Primary osteoarthritis, left shoulder (principal)

== ENCOUNTER 2023-11-19 08:46 | Outpatient (CLI) | payer MEDICARE ==
[2023-11-19 09:04] LABS: BASOPHILS # (AUTO) 0.1 10^3/uL (0.0-0.1); BASOPHILS % (AUTO) 1.2 %; EOSINOPHILS # (AUTO) 0.2 10^3/uL (0.0-0.7); EOSINOPHILS % (AUTO) 2.8 %; HCT - HEMATOCRIT 39.8 % (37.0-47.0); LYMPHOCYTES # (AUTO) 2.1 10^3/uL (1.5-3.5); LYMPHOCYTES % (AUTO) 34.3 %; MEAN CORPUSCULAR HEMOGLOBIN 28.9 pg (27.0-31.0); MEAN CORPUSCULAR HGB CONC 32.7 g/dL (32.0-36.0); MEAN CORPUSCULAR VOLUME 88.4 fL (81.0-99.0); MEAN PLATELET VOLUME 9.3 fL (7.9-10.8); MONOCYTES # (AUTO) 0.6 10^3/uL (0.0-1.0); MONOCYTES % (AUTO) 10.4 %; NEUTROPHILS # (AUTO) 3.1 10^3/uL (1.5-6.6); NEUTROPHILS % (AUTO) 51.1 %; PLT - PLATELET COUNT 414 10^3/uL (130-450); RED CELL DISTRIBUTION WIDTH 13.5 % (12.0-15.0); WHITE BLOOD COUNT 6.1 x10^3/uL (4.8-10.8)
[2023-11-19 09:22] LABS: ALBUMIN 4.1 g/dL (3.2-5.5); ALBUMIN/GLOBULIN RATIO 1.2 (1.0-2.2); ALKALINE PHOSPHATASE 80 IU/L (42-121); ALT ALANINE AMINOTRANSFERASE 16 IU/L (10-60); AST ASPARTATE AMINOTRANSFERASE 16 IU/L (10-42); BILIRUBIN,TOTAL 0.4 mg/dL (0.2-1.0); BUN - BLOOD UREA NITROGEN 12 mg/dL (6-20); CALCIUM 9.6 mg/dL (8.5-10.3); CARBON DIOXIDE - CO2 28 mmol/L (21-32); CHLORIDE 102 mmol/L (101-111); CHOL/HDL RATIO 4.6 (<4.4); CHOLESTEROL 208 mg/dL; CREATININE 0.7 mg/dL (0.6-1.3); GFR - MDRD 83 (>89); GLUCOSE 112 mg/dL (74-104); HDL CHOLESTEROL 45 mg/dL; LDL CHOLESTEROL,CALCULATED 124 mg/dL; LDL/HDL RATIO 2.8 (<4.4); POTASSIUM 4.1 mmol/L (3.5-4.5); SODIUM 136 mmol/L (135-145); TOTAL PROTEIN 7.5 g/dL (6.4-8.9); TRIGLYCERIDES 193 mg/dL (48-352); VLDL CHOLESTEROL 39 mg/dL
[2023-11-19 09:32] LABS: THYROID STIMULATING HORMONE 3.74 uIU/mL (0.34-5.60)
== END 2023-11-19 08:47 | disposition home or self-care (01) ==
LOC: LAB 08:46
PROVIDERS: ATTEND Physician Assistant
DX: I10 Essential (primary) hypertension (principal); E78.5 Hyperlipidemia, unspecified
CPT/HCPCS: 36415; 80053; 80061; 83721; 84443; 85025

== ENCOUNTER 2023-12-19 10:25 | Outpatient (CLI) | payer MEDICARE ==
--- NOTE | 2023-12-19 20:43 | DEXA Report ---
PROCEDURE: Dexa Spine and/or Hip INDICATIONS: POST MENOPAUSAL TECHNIQUE: Dual energy x-ray absorptiometry (DXA) was performed on a [employer] System. Regions measur ed are the AP Spine, femoral neck, and if needed forearm. COMPARISON: None FINDINGS: Lumbar Spine: Bone Mineral Density: 1.33 g/cm/cm,T score: 1.3. Left Femoral Neck: Bone Mineral Density: 0.927 g/cm/cm, T score: -0.8. Left Hip: Bone Mineral Density: 1.017 g/cm/cm,T score: 0.1. Left Forearm: (T score greater or equal to -1.0: NORMAL) (T score from -1.1 to -2.4: OSTEOPENIA) (T score less than or equal to -2.5 to: OSTEOPOROSIS) Impression: By WHO criteria, this patient has normal bone density. Patients with diagnosis of osteoporosis or osteopenia should have regular bone mineral density assess ment. For those eligible for Medicare, routine testing is allowed once every 2 years. Testing frequ ency can be increased for patients who have rapidly progressing disease or for those who are receivin g medical therapy to restore bone mass. Reviewed by: Cate Kelley MD on 12/19/2023 8:41 PM PDT Approved by: Cate Kelley MD on 12/19/2023 8:41 PM PDT Station ID: [id number]
== END 2023-12-19 10:26 | disposition home or self-care (01) ==
LOC: DI 10:25
PROVIDERS: ATTEND Physician Assistant
DX: N95.1 Menopausal and female climacteric states (principal)